=== PATIENT | male | born 1960 | race Caucasian/White ===

== ENCOUNTER 2018-01-20 18:54 | Inpatient (IN) ==
[2018-01-20] MEDS ORDERED: HEPARIN 25000 UNIT/500 ML D5W IV ONE (20:14)
[2018-01-20] MEDS ORDERED: HEPARIN SOD 5,000 UNIT/0.5 ML VIAL ONE (20:14)
[2018-01-20 20:22] LABS: Basophils # (auto) 0.05 K/uL (0-0.2); Basophils % (auto) 0.5 %; Eosinophils # (auto) 0.43 K/uL (0-0.5); Eosinophils % (auto) 3.9 %; Hematocrit (blood only) 50.1 % (42-52); Hemoglobin 18.3 g/dL (14.0-18.0); Immature Granulocytes # (auto) 0.04 K/uL (0.00-0.02); Immature Granulocytes % (auto) 0.4 %; Mean Corpuscular Hgb Conc 36.5 g/dL (32-36); Mean Corpuscular Volume 96.3 fL (80-100); Monocytes # (auto) 0.89 K/uL (0.11-0.59); Neutrophils # (auto) 5.69 K/uL (1.4-6.5); Neutrophils % (auto) 51.2 %; Platelet Count 188 K/uL (130-400); RDW Coefficient of Variation 12.2 % (11.5-14.5); RDW Standard Deviation 42.8 fL (36.4-46.3)
[2018-01-20 20:31] LABS: Albumin Level 4.3 gm/dl (3.4-5.0); BUN Creatinine Ratio 9.5 (10-20); Calcium 9.1 mg/dl (8.5-10.1); Creatinine Clr Calc Pharmacy 91.9 ml/min; Est GFR (African American) 101.1; Est GFR (Non-African American) 87.3; Potassium 3.5 mmol/L (3.5-5.1)
[2018-01-20 20:34] LABS: Albumin Globulin Ratio 0.8 (0.9-2); Bilirubin,Total 1.1 mg/dl (0.1-1); Globulin 5.3 gm/dl (2.5-4.0); Total Protein 9.6 gm/dl (6.4-8.2)
--- NOTE | 2018-01-20 20:43 | Emergency Department Note ---
Entered by Lelia Oivedo acting as a scribe for John Fernando DO History of Present Illness General Chief complaint: Abnormal Labs/Diagnostic Testing Stated complaint: OCCLUSION OF THE RT FEMORAL ARTERY Time Seen by Provider: 01/20/18 19:01 Source: patient History of Present Illness Onset (ago): week(s) 2 Location: right (calf) Radiation: extremity (Right leg) Pain Consistency: + other (Persistent) Maximum Pain Intensity: 8 Quality: + other (right calf pain) Exacerbated By: + movement Associated symptoms: no denies other symptoms The patient is a 57 year old male who presents to the Emergency Room with complaints of persistent right calf pain starting 2 weeks ago. The patient reports that the inside of his right calf began to hurt. He states that earlier today he was at his PCP who suggested he come to the ED. He reports that his right calf swelled up a few days ago. He notes that when he moves and puts pressure on his right leg his pain worsens. The patient states that upon movement the pain radiates down his right leg. He denies any other pertinent symptoms. The patient reports that he does smoke. Home Medications Home Medications Medication Instructions Recorded Confirmed Type No Known Home Medications 01/20/18 01/20/18 History Allergies Allergy/AdvReac Type Severity Reaction Status Date / Time Penicillins Allergy Severe Unknown Unverified 01/20/18 19:32 N Allergy Unknown Unknown Uncoded 01/20/18 19:32 PCN Allergy Unknown Unknown Uncoded 01/20/18 19:32 Past Med/Surg History Medical History Coagulation problem Social History Feels Safe at Home: Yes Smoking Status: Current every day smoker Preferred Language: Lithuanian Review of Systems See HPI for pertinent positives & negatives. and A total of 10 systems reviewed and were otherwise negative Physical Exam Vital Signs Vital Signs - 24 hr 01/20/18 18:56 01/20/18 20:25 Temperature 36.8 C Temperature Source Oral Sepsis Recent Fever Within 48 Hours No Sepsis Action Taken by Nursing No Action Required Pulse Rate 79 Pulse Rate [Bilateral Finger] 77 Pulse Rhythm Regular Pulse Rhythm [Bilateral Finger] Regular Pulse Strength Normal Pulse Strength [Bilateral Finger] Normal Respiratory Rate 18 16 Respiratory Effort / Characteristics Non-Labored Spontaneous Non-Labored Respiratory Depth Normal Normal Respiratory Pattern Regular Blood Pressure 198/111 H Blood Pressure [Right Arm] 164/112 H Blood Pressure Mean 140 Blood Pressure Mean [Right Arm] 129 Blood Pressure Position Sitting Blood Pressure Position [Right Arm] Lying Pulse Oximetry 98 95 Oxygen Delivery Method Room Air Room Air CONSTITUTIONAL/VITAL SIGNS: Reviewed / noted above. GENERAL: Non-toxic in appearance. INTEGUMENTARY: Warm, dry, and Fidelis. HEAD: Normocephalic. EYES: without scleral icterus or trauma. ENT/OROPHARYNX: clear and moist. LYMPHADENOPATHY/NECK: Is supple without lymphadenopathy or meningismus. RESPIRATORY: Lungs clear and equal. CARDIOVASCULAR: Regular rate and rhythm. GI/ABDOMEN: Soft and nontender. No organomegaly or pulsatile mass. No rebound or guarding. Normal bowel sounds. EXTREMITIES: 3 second capillary refill symmetrical in bilateral lower extremities. BACK: No CVA tenderness. NEUROLOGICAL: Intact without focal deficits. PSYCHIATRIC: normal affect. MUSCULOSKELETAL: Normally developed with good muscle tone. Course 1925: Past medical records reviewed. The patient was evaluated in room C4, and a complete history and physical examination were performed. 1999: I reviewed the patient's case with Dr. Baer - Vascular Surgeon. He recommends to give the patient IV Heparin and keep the patient in the hospital. 2005: I reviewed the patient's case with Dr. Valdez - [facility] hospitalist. He will evaluate the patient for further management. Administered Medications Discontinued Medications Heparin Sodium (Porcine) (Heparin Sodium (Porcine)) Confirm Administered Dose 10 ,000 units .ROUTE .STK-MED ONE Stop: 01/20/18 20:15 Last Admin: 01/20/18 20:18 Dose: 6,000 units Heparin Sodium/Dextrose () 1 ea N/A NOW STA; Protocol Stop: 01/20/18 20:04 Last Admin: 01/20/18 20:19 Dose: 1 ea Heparin Sodium/Dextrose (Heparin Sodium/Dextrose) Confirm Administered Dose 25, 000 units IV .STK-MED ONE Stop: 01/20/18 20:15 Last Admin: 01/20/18 20:21 Dose: 1,400 units Medical Decision Making Differential Diagnosis Differential diagnosis: Etiologies such as DVT, vascular ischemia, radiculopathy, fracture, hematoma/ contusion, myositis, abscess, septic arthritis cellulitis, joint effusion, trauma, lymphedema, idiopathic, CHF, as well as others were entertained. Medical Records Attestation: I reviewed the patient's medical records. Home Medications Current Medication List: was personally reviewed by me Laboratory Data Attestation: I reviewed the patient's lab results. Result diagrams: 01/20/18 19:15 01/20/18 19:15 Lab Results 01/20/18 01/20/18 Range/Units 19:15 19:15 WBC 11.10 H (4.8-10.8) K/uL RBC 5.20 (4.7-6.1) M/uL Hgb 18.3 H (14.0-18.0) g/dL Hct 50.1 (42-52) % MCV 96.3 (80-100) fL MCH 35.2 H (25-34) pg MCHC 36.5 H (32-36) g/dL RDW Std Deviation 42.8 (36.4-46.3) fL RDW Coeff of Caesar 12.2 (11.5-14.5) % Plt Count 188 (130-400) K/uL MPV 10.0 (7.4-10.4) fL Immature Gran % (Auto) 0.4 % Neut % (Auto) 51.2 % Lymph % (Auto) 36.0 % [place]upe % (Auto) 8.0 % Eos % (Auto) 3.9 % Baso % (Auto) 0.5 % Immature Gran # (Auto) 0.04 H (0.00-0.02) K/uL Neut # (Auto) 5.69 (1.4-6.5) K/uL Lymph # (Auto) 4.00 H (1.2-3.4) K/uL [place] # (Auto) 0.89 H (0.11-0.59) K/uL Eos # (Auto) 0.43 (0-0.5) K/uL Baso # (Auto) 0.05 (0-0.2) K/uL Sodium 135 L (136-145) mmol/L Potassium 3.5 (3.5-5.1) mmol/L Chloride 103 (98-107) mmol/L Carbon Dioxide 29 (21-32) mmol/L Anion Gap 3.0 (3-11) BUN 9 (7-18) mg/dl Creatinine 0.95 (0.6-1.4) mg/dl Est Cr Clr Drug Dosing 91.9 ml/min Est GFR ( Amer) 101.1 Est GFR (Non-Af Amer) 87.3 BUN/Creatinine Ratio 9.5 L (10-20) Glucose 84 (70-99) mg/dl Calcium 9.1 (8.5-10.1) mg/dl Total Bilirubin 1.1 H (0.1-1) mg/dl AST 59 H (15-37) U/L ALT 86 H (12-78) U/L Alkaline Phosphatase 122 H (45-117) U/L Total Protein 9.6 H (6.4-8.2) gm/dl Albumin 4.3 (3.4-5.0) gm/dl Globulin 5.3 H (2.5-4.0) gm/dl Albumin/Globulin Ratio 0.8 L (0.9-2) Imaging Data Radiologist's Impression: Radiology results as stated below per my review and the radiologist's interpretation: ULTRASOUND RIGHT LOWER EXTREMITY VENOUS CLINICAL HISTORY: Right calf pain. COMPARISON STUDY: No priors. TECHNIQUE: Real-time, grayscale, and color Doppler sonography of the deep veins of the right lower extremity was performed from the inguinal crease to the calf. Compression and augmentation were utilized. FINDINGS: There is no sonographic evidence of deep venous thrombosis identified in the right lower extremity. The common femoral, superficial femoral, and popliteal veins are patent and normally compressible. The greater saphenous vein and the profunda femoris vein at the junction with the common femoral vein are clear. The visualized calf veins are patent. There is occlusion of the right superficial femoral artery IMPRESSION: 1. There is no sonographic evidence of deep venous thrombosis identified in the right lower extremity. 2. There is occlusion of the right femoral artery. Electronically signed by: Lino Yan M.D. 01/20/2018 5:49 PM ECG Data Attestation: I personally reviewed and interpreted this ECG as follows: Indication: weakness Rate (beats per minute): 72 Rhythm: normal sinus Findings: no ST elevation and no ectopy Comparison ECG Date: no prior available Blood Pressure Blood Pressure Findings: Elevated blood pressure Blood Pressure Disposition: further management by hospitalist JACOB Roman This is a 57-year-old male who presents to the ED with a chief complaint of an abnormal outpatient ultrasound. The patient had been having some right leg pain over the past couple of weeks. The patient states that he has some claudication symptoms. He states that if he walks up the steps at home he begins to develop right calf pain. He also states that he could not walk very far to since without discomfort. An outpatient ultrasound revealed findings suggesting a right superficial femoral artery occlusion. He was sent to the ED for evaluation. EKG shows a normal sinus rhythm. CBC and chemistry panel was unremarkable. The patient's exam reveals some delayed capillary refill of about 3 seconds in both the lower extremities. After speaking with Dr. Baer, the patient will be admitted by the hospitalist service and placed on IV heparin for further inpatient evaluation. Impression & Plan Superficial femoral artery occlusion Discharge Plan Visit Data Chief Complaint: Abnormal Labs/Diagnostic Testing Stated Complaint: OCCLUSION OF THE RT FEMORAL ARTERY ED Provider: John Fernando Discharge Problem: Superficial femoral artery occlusion Patient Disposition: Being Evaluated by Hospitalist Forms Stand Alone [facility]: [facility] Prescriptions Prescriptions: No Action No Known Home Medications RF: 0 Referrals Referrals: Elton Calderon [Primary Care Provider] - The scribe's documentation has been prepared under my direction and personally reviewed by me in its entirety. I confirm that the note above accurately reflects all work, treatment, procedures, and medical decision making performed by me.
--- NOTE | 2018-01-20 21:04 | History & Physical Report ---
Date of Service January 20, 2018 Assessment & Plan (1) Occlusion of right femoral artery: -Admit to [facility] -Patient presenting by referral of outpatient physician for evaluation of right leg pain after outpatient ultrasound showed right femoral artery occlusion -History consistent with intermittent claudication; no pain at rest -Patient has been a lifelong smoker, smokes 1.5 packs of cigarettes per day -IV heparin started in the ED, will be continued -Frequent vascular checks by nursing -Vascular surgery consult, Dr. Baer notified by ED (2) Hypertension, uncontrolled: -BP elevated as high as 198/111 in ED -Patient reports a long-standing history of hypertension however has been off medications for several years -Was started on losartan today by outpatient physician, will continue and monitor response making adjustments as needed -PRN hydralazine (3) Alcohol abuse: -Patient reports drinking 4-6 beers per day -Start alcohol withdrawal protocol with gabapentin -Multivitamin, thiamine, folic acid started -Monitor closely for signs of withdrawal (4) Tobacco use: -Smokes 1.5 packs of cigarettes per day -Nicotine patch ordered -Patient counseled regarding tobacco cessation (5) Marijuana use: -Patient reports smoking 1 joint per day (6) Opiate use: -Occasional use of Vicodin and oxycodone, "when I can get my hands on it" per patient (7) DVT prophylaxis: -On IV heparin History of Present Illness Chief Complaint: Right leg pain Primary Care Provider: Elton Calderon 57-year-old male who presents to the ED by referral of outpatient physician for evaluation of right leg pain. Patient reports over the past 2 weeks he has been having increasing right calf pain with walking. Pain has been progressively getting worse to the point where he develops pain with about 5 or 6 steps. Recently, he also has developed pain in his right groin area. Patient reports he feels like both of his feet are always cold. Patient reports he otherwise been feeling well recently. No other recent illnesses, fevers, chills. He denies chest pain shortness of breath. No lightheadedness, dizziness, diaphoresis, syncopal events. He denies abdominal pain, nausea, vomiting, diarrhea. No urinary symptoms. Patient was evaluated at [facility] today and had a venous Doppler ordered which was negative for DVT however showed right femoral artery occlusion. Patient was referred to the ED for further evaluation. In the ED, patient was found to be hypertensive with BP 198/111. He was started on IV heparin. Allergies Allergy/AdvReac Type Severity Reaction Status Date / Time Penicillins Allergy Severe Unknown Unverified 01/20/18 19:32 N Allergy Unknown Unknown Uncoded 01/20/18 19:32 PCN Allergy Unknown Unknown Uncoded 01/20/18 19:32 Home Medications Home Medications Medication Instructions Recorded Confirmed Type No Known Home Medications 01/20/18 01/20/18 History Past Med/Surg History Medical History Coagulation problem Family History Mother Healthy adult 78 years old, alive and well Social History Current Living Situation: Family Current Living Situation Comment: With 2 grandsons Other Information That Helps Us Care for You: No Feels Safe at Home: Yes Safety Concerns: Feels Safe At This Time Smoking Status: Current every day smoker Tobacco Type: cigarettes Cigarettes per Day: Half and a pack per day Do You Dip or Chew Tobacco: No Second Hand Exposure: No Tobacco Cessation Education Requested by Patient: No Hx Alcohol Use: Yes Alcohol type: beer Alcohol Intake Frequency: 3 or more drinks per day Hx Substance Use: Yes substance use type: marijuana Last Used Substance: Days ( ago) Last Used Substance Other:: A joint a day; yesterday evening Beliefs That Will Affect Care: None Preferred Language: Guamanian Au Pair Required: No Review of Systems ROS per HPI, all other systems reviewed and negative Physical Exam 2 Vital Signs (Past 24 Hours): Last Vital Signs Temp 36.8 C 01/20/18 18:56 Pulse 77 01/20/18 20:25 Resp 16 01/20/18 20:25 BP 164/112 H 01/20/18 20:25 Pulse Ox 95 01/20/18 20:25 Constitutional: WD/WN, vitals as above Eyes: PERRL, conjunctivae normal, anicteric sclerae ENMT: external ear and nose normal, oropharynx normal Respiratory: normal respiratory effort, lungs clear to auscultation Cardiovascular: Rate/Rhythm: regular rate and regular rhythm Vessels: + abnormal peripheral pulses (Absent right pedal pulse, very diminished right posterior tibial pulse; diminished left pedal pulse, +2 left posterior tibial pulse) Extremities: no edema Both feet cool to touch Gastrointestinal (Abdomen): normal bowel sounds, soft, nontender, no hepatosplenomegaly Musculoskeletal: no cyanosis or clubbing, extremities motor strength 5/5 Skin: no rashes, warm and dry Neurologic: PERRL, EOMI, accommodation nl, no face palsy, no dysarthria Psychiatric: A+Ox3, euthymic affect Results & Data Laboratory Results Laboratory Last Values WBC 11.10 K/uL (4.8-10.8) H 01/20/18 19:15 RBC 5.20 M/uL (4.7-6.1) 01/20/18 19:15 Hgb 18.3 g/dL (14.0-18.0) H 01/20/18 19:15 Hct 50.1 % (42-52) 01/20/18 19:15 MCV 96.3 fL (80-100) 01/20/18 19:15 MCH 35.2 pg (25-34) H 01/20/18 19:15 MCHC 36.5 g/dL (32-36) H 01/20/18 19:15 RDW Std Deviation 42.8 fL (36.4-46.3) 01/20/18 19:15 RDW Coeff of Caesar 12.2 % (11.5-14.5) 01/20/18 19:15 Plt Count 188 K/uL (130-400) 01/20/18 19:15 MPV 10.0 fL (7.4-10.4) 01/20/18 19:15 Immature Gran % (Auto) 0.4 % 01/20/18 19:15 Neut % (Auto) 51.2 % 01/20/18 19:15 Lymph % (Auto) 36.0 % 01/20/18 19:15 Moca % (Auto) 8.0 % 01/20/18 19:15 Eos % (Auto) 3.9 % 01/20/18 19:15 Baso % (Auto) 0.5 % 01/20/18 19:15 Immature Gran # (Auto) 0.04 K/uL (0.00-0.02) H 01/20/18 19:15 Neut # (Auto) 5.69 K/uL (1.4-6.5) 01/20/18 19:15 Lymph # (Auto) 4.00 K/uL (1.2-3.4) H 01/20/18 19:15 Moca # (Auto) 0.89 K/uL (0.11-0.59) H 01/20/18 19:15 Eos # (Auto) 0.43 K/uL (0-0.5) 01/20/18 19:15 Baso # (Auto) 0.05 K/uL (0-0.2) 01/20/18 19:15 Sodium 135 mmol/L (136-145) L 01/20/18 19:15 Potassium 3.5 mmol/L (3.5-5.1) 01/20/18 19:15 Chloride 103 mmol/L (98-107) 01/20/18 19:15 Carbon Dioxide 29 mmol/L (21-32) 01/20/18 19:15 Anion Gap 3.0 (3-11) 01/20/18 19:15 BUN 9 mg/dl (7-18) 01/20/18 19:15 Creatinine 0.95 mg/dl (0.6-1.4) 01/20/18 19:15 Est Cr Clr Drug Dosing 91.9 ml/min 01/20/18 19:15 Est GFR ( Amer) 101.1 01/20/18 19:15 Est GFR (Non-Af Amer) 87.3 01/20/18 19:15 BUN/Creatinine Ratio 9.5 (10-20) L 01/20/18 19:15 Glucose 84 mg/dl (70-99) 01/20/18 19:15 Calcium 9.1 mg/dl (8.5-10.1) 01/20/18 19:15 Total Bilirubin 1.1 mg/dl (0.1-1) H 01/20/18 19:15 AST 59 U/L (15-37) H 01/20/18 19:15 ALT 86 U/L (12-78) H 01/20/18 19:15 Alkaline Phosphatase 122 U/L (45-117) H 01/20/18 19:15 Total Protein 9.6 gm/dl (6.4-8.2) H 01/20/18 19:15 Albumin 4.3 gm/dl (3.4-5.0) 01/20/18 19:15 Globulin 5.3 gm/dl (2.5-4.0) H 01/20/18 19:15 Albumin/Globulin Ratio 0.8 (0.9-2) L 01/20/18 19:15 Diagnostic Findings RLE VENOUS DOPPLER IMPRESSION: 1. There is no sonographic evidence of deep venous thrombosis identified in the right lower extremity. 2. There is occlusion of the right femoral artery. Code Status & VTE Plan VTE Prophylaxis Plan VTE Prophylaxis will be ordered: Yes Supervising Physician Co-Signing Physician Notes Agree with above H and P. Briefly 57M who didnot visited doctor for many years smokes, 1-2packs/day, drinks 4-6 beers/day, smokes marijuana daily presented to [facility] with Right lower extremity pain while ambulating which is going on for about 2 weeks. He says walking few steps brings on the pain in his right calf and resting for sometime pain goes away. Ultrasound done in [facility] showed occluded to right femoral artery. Denies any chest pain or sob. No nausea. Has smokers cough. Afebrile..Blood pressure is high and was prescribed losartan at [facility] today. 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 HTN started on losartn hydralazine prn Alcoholism alcholol withdrawal [protocol thiamine Smoking tobacco and marijuana counselling
[2018-01-20] MEDS ORDERED: LORazepam 1 MG TAB PO PRN (22:03)
[2018-01-20] MEDS ORDERED: GABAPENTIN 1200MG ALCOHOL WITHDRAWAL LOAD PO STA (22:03)
[2018-01-20] MEDS ORDERED: ONDANSETRON INJ 2 MG/ML 2 ML VIAL IV PRN (22:03)
[2018-01-20] MEDS ORDERED: GABAPENTIN 600 MG TAB PO SCH (22:30)
[2018-01-20] MEDS ORDERED: HEPARIN STANDARD DEXTROSE 25,000 UNITS/500 ML IV SCH (22:54)
[2018-01-20] MEDS: LOSARTAN POTASSIUM 25 MG TAB PO SCH (23:21)
[2018-01-20] MEDS: FOLIC ACID 1 MG TAB PO SCH (23:22)
[2018-01-20] MEDS: MULTIVITAMIN TAB PO SCH (23:23)
[2018-01-20] MEDS: NICOTINE 14 MG/24 HR PATCH TD SCH (23:24)
[2018-01-20] MEDS: THIAMINE HCL 100 MG TAB PO SCH (23:25)
[2018-01-21 02:56] LABS: Partial Thromboplastin Ratio 2.7; Partial Thromboplastin Time 69.2 Seconds (21.0-31.0)
[2018-01-21] MEDS: GABAPENTIN 600 MG TAB PO SCH ×4 (03:31→17:20)
[2018-01-21 06:57] LABS: Hemoglobin 16.9 g/dL (14.0-18.0); Mean Corpuscular Hgb Conc 36.7 g/dL (32-36); Mean Corpuscular Volume 95.6 fL (80-100); Mean Platelet Volume 9.2 fL (7.4-10.4); Platelet Count 163 K/uL (130-400); RDW Coefficient of Variation 12.1 % (11.5-14.5); RDW Standard Deviation 41.9 fL (36.4-46.3); Red Blood Count 4.81 M/uL (4.7-6.1)
[2018-01-21 07:36] LABS: Albumin Level 3.4 gm/dl (3.4-5.0); BUN Creatinine Ratio 9.7 (10-20); Bilirubin Direct 0.4 mg/dl (0-0.2); Calcium 8.4 mg/dl (8.5-10.1); Creatinine Clr Calc Pharmacy 105.5 ml/min; Est GFR (African American) 112.2; Est GFR (Non-African American) 96.8; Potassium 3.5 mmol/L (3.5-5.1)
[2018-01-21 07:43] LABS: Bilirubin,Total 1.1 mg/dl (0.1-1); Total Protein 7.8 gm/dl (6.4-8.2)
--- NOTE | 2018-01-21 08:07 | Ultrasound Report ---
US liver CLINICAL HISTORY: ELEVATED LFT COMPARISON STUDY: No previous studies for comparison. FINDINGS: Fatty infiltration of liver. Normal gallbladder. Common bile duct 6 mm. Intrahepatic ducts are normal. Kidneys negative for hydronephrosis. Pancreas is unremarkable. IMPRESSION: Fatty infiltration of liver. Otherwise negative study.. The above report was generated using voice recognition software. It may contain grammatical, syntax or spelling errors. Electronically signed by: Zoran Wyatt M.D. 01/21/2018 8:05 AM
[2018-01-21] MEDS: THIAMINE HCL 100 MG TAB PO SCH (08:58)
[2018-01-21] MEDS: FOLIC ACID 1 MG TAB PO SCH (08:58)
[2018-01-21] MEDS: LOSARTAN POTASSIUM 25 MG TAB PO SCH (08:59)
[2018-01-21] MEDS: MULTIVITAMIN TAB PO SCH (08:59)
--- NOTE | 2018-01-21 08:59 | Consultation ---
Date of Consultation January 21, 2018 Assessment & Plan (1) Claudication of right lower extremity: Due to the severity of the claudication right lower extremity is extremely short distances we recommend arteriography and possible intervention. He did have a distal superficial femoral artery occlusion on ultrasound done at a different facility. I have discussed the risks options and benefits of the procedure with the patient. The patient understands the risks options and benefits and agrees to the procedure. This will be done today in the angiogram suite. Thank you very much for letting us participate in the care of this patient. History of Present Illness Reason for Consultation: Severe claudication of the right lower extremity. Attending Physician: Marcos Hightower MD History of Present Illness This is a 57-year-old white male who has a heavy smoking history. He was found to have pain in his right calf which occurred over the last 2 weeks. It comes on at this point walking short distances of 2-3 steps. It is easily relieved with stopping or resting. He denies any pain at rest. He denies any ulceration of lower extremities. He has not any problems with this in the past. He has no history of cardiac arrhythmias. He does have a history of hypertension as well as marijuana opiate and alcohol use Allergies Allergy/AdvReac Type Severity Reaction Status Date / Time Penicillins Allergy Severe Unknown Unverified 01/20/18 19:32 N Allergy Unknown Unknown Uncoded 01/20/18 19:32 PCN Allergy Unknown Unknown Uncoded 01/20/18 19:32 Home Medications Home Medications Medication Instructions Recorded Confirmed Type No Known Home Medications 01/20/18 01/20/18 History Patient History Medical History Leg fracture, right (Resolved) s/p repair HTN (hypertension) (Chronic) Coagulation problem (Inactive) Surgical History S/P wrist surgery (Chronic) right Family History Mother Healthy adult 78 years old, alive and well Social History Current Living Situation: Family Current Living Situation Comment: With 2 grandsons Other Information That Helps Us Care for You: No Feels Safe at Home: Yes Safety Concerns: Feels Safe At This Time Smoking Status: Current every day smoker Tobacco Type: cigarettes Cigarettes per Day: Half and a pack per day Do You Dip or Chew Tobacco: No Second Hand Exposure: No Tobacco Cessation Education Requested by Patient: No Hx Alcohol Use: Yes Alcohol type: beer Alcohol Intake Frequency: 3 or more drinks per day Hx Substance Use: Yes substance use type: marijuana Last Used Substance: Days ( ago) Last Used Substance Other:: A joint a day; yesterday evening Beliefs That Will Affect Care: None Preferred Language: Citizen [place] 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 His only positive complaints are as his HPI. Physical Exam 2 Vital Signs (Past 24 Hours): Last Vital Signs Temp 36.7 C 01/21/18 08:35 Pulse 82 01/21/18 08:35 Resp 18 01/21/18 08:35 BP 168/90 H 01/21/18 08:35 Pulse Ox 96 01/21/18 08:35 on exam the patient is awake oriented x3 he is in no apparent distress. Head and neck are within normal limits trachea is midline there are no carotid bruits lungs are clear to auscultation and percussion. Heart had a regular rate and rhythm without murmurs gallops or rubs. Abdominal exam is benign no abnormal dilatation aorta is appreciated. It is soft. Vascular exam reveals radials carotid superficial temporal arteries +2 bilaterally. Femorals are +2 bilaterally. There are palpable pulses in the left foot at the posterior tibial and a weak pulse at the dorsalis pedis. The right lower extremity has no pulses below the groin. There is normal hair growth in both lower extremities. There is no evidence of ulcerations or skin breakdown of either lower extremity. There is decreased capillary refill in the right foot. Neurologic exam is intact and motor and sensory function. His cranial nerves are also intact.
[2018-01-21] MEDS ORDERED: SODIUM CHLORIDE 0.9% 1000ML 1,000 ML IV SCH (09:00)
[2018-01-21] MEDS: NICOTINE 14 MG/24 HR PATCH TD SCH (09:13)
--- NOTE | 2018-01-21 09:35 | Hospitalist Progress Note ---
Date of Service January 21, 2018 Assessment & Plan (1) Occlusion of right femoral artery: Occlusion of right femoral artery (Claudication of right lower extremity) -Admit to [facility] -Patient presenting by referral of outpatient physician for evaluation of right leg pain after outpatient ultrasound showed right femoral artery occlusion -patient will be assessed in the angiogram suite today by vascular service in regards to further diagnostic and possible vascular procedure intervention -patient will continue heparin drip while awaiting vascular service (2) Hypertension, uncontrolled: -BP elevated as high as 198/111 in ED on 01/20/18 presentation -01/21/18 blood pressure preop is better controlled today with systolic in the 160s to 170s -will continue oral losartan as started recently -PRN hydralazine (3) Alcohol abuse: -Patient reports drinking 4-6 beers per day -is on gabapentin protocol in case of alcohol withdrawal -Multivitamin, thiamine, folic acid -no evidence for delirium tremens at this time (4) Tobacco use: -Smokes 1.5 packs of cigarettes per day -Nicotine patch inpatient -Patient counseled regarding tobacco cessation (5) Marijuana use: -Patient reports smoking 1 joint per day (6) Opiate use: -Occasional use of Vicodin and oxycodone -minimize narcotics in hospital unless severely needed for pain control (7) DVT prophylaxis: -On IV heparin Subjective Patient reports right calf discomfort. But not in acute distress. Denies chest pain pain or shortness of breath. Denies abdominal pain. denies vomiting. denies lightheadedness. Physical Exam 2 Vital Signs (Past 24 Hours): Last Vital Signs Temp 36.7 C 01/21/18 08:35 Pulse 82 01/21/18 08:35 Resp 18 01/21/18 08:35 BP 168/90 H 01/21/18 08:35 Pulse Ox 96 01/21/18 08:35 Constitutional: WD/WN, vitals as above Eyes: PERRL, conjunctivae normal, anicteric sclerae EOM intact bilaterally ENMT: external ear and nose normal, oropharynx normal Neck: trachea midline, no thyromegaly Respiratory: normal respiratory effort, lungs clear to auscultation Cardiovascular: RRR, no murmur, no edema Gastrointestinal (Abdomen): normal bowel sounds, soft, nontender, no hepatosplenomegaly Musculoskeletal: Head/Neck/Chest: normocephalic and head atraumatic Vessels : pedal pulse of right foot diminished, lower Extremities with no edema Neurologic: PERRL, EOMI, accommodation nl, no face palsy, no dysarthria CN' s II-XI intact bilaterally Psychiatric: A+Ox3, euthymic affect
[2018-01-21] MEDS: CLINDAMYCIN 600 MG/54 ML BAG IV SCH ×2 (11:01→11:54)
[2018-01-21] MEDS ORDERED: HEPARIN SOD (PORCINE) 1000 UNIT/ML 10 ML VIAL ONE (11:47)
[2018-01-21] MEDS ORDERED: MIDAZOLAM HCL 1 MG/ML 2ML VIAL ONE (11:47)
[2018-01-21] MEDS ORDERED: fentaNYL citrate 100 MCG/2 ML VIAL ONE ×2 (11:47→13:12)
--- NOTE | 2018-01-21 12:07 | Pre Anesthesia Assessment ---
Date of Service January 21, 2018 Pre Sedation Assessment Vital Signs Temp Pulse Pulse Pulse Pulse Pulse Resp 01/21/18 12:00 36.9 C 83 20 01/21/18 08:35 36.7 C 82 18 01/21/18 03:08 36.7 C 69 16 01/21/18 00:40 88 01/20/18 22:52 36.9 C 82 20 01/20/18 21:49 37.0 C 76 16 01/20/18 21:36 71 16 01/20/18 20:25 77 16 01/20/18 18:56 36.8 C 79 18 BP BP BP Pulse Ox 01/21/18 12:00 162/92 H 96 01/21/18 08:35 168/90 H 96 01/21/18 03:08 158/82 H 96 01/21/18 00:40 164/72 H 01/20/18 22:52 187/92 H 98 01/20/18 21:49 155/98 H 96 01/20/18 21:36 174/102 H 99 01/20/18 20:25 164/112 H 95 01/20/18 18:56 198/111 H 98 Cardiovascular + regular rate and + regular rhythm Respiratory normal respiratory effort, lungs clear to auscultation Pre-Sedation Airway Assessment Smoking Status: Current every day smoker Hx Sleep Apnea: No Short, Thick Neck: No Thyromental Distance: > or= 3.5 Finger Breadths Oral Cavity: + WNL Mallampati Class: I ASA: ASA2 NPO Status Date of Last Intake of Fluids: 01/20/18 Time of Last Intake of Fluids: 23:00 Date of Last Intake of Solid Food: 01/20/18 Time of Last Intake of Solid Foods: 23:00 Notes The planned sedation has been discussed with the patient. Informed Consent was obtained. I have identified the patient, determined the appropriateness of sedation and have assessed the patient immediately prior to the procedure. All medicine(s) and interventions are by my order.
[2018-01-21] MEDS ORDERED: VISIPAQUE IV PRN (13:39)
[2018-01-21] MEDS ORDERED: LIDOCAINE HCL 1% 20 ML VIAL INJ ONE (13:39)
--- NOTE | 2018-01-21 13:45 | Post Anesthesia Assessment ---
Date of Service January 21, 2018 Post Sedation Assessment Vital Signs Temp Pulse Pulse Pulse Pulse Pulse Resp 01/21/18 13:38 78 18 01/21/18 13:33 80 15 01/21/18 13:30 79 15 01/21/18 13:25 78 15 01/21/18 13:20 74 14 01/21/18 13:15 78 12 01/21/18 13:10 80 19 01/21/18 13:05 79 15 01/21/18 13:00 75 13 01/21/18 12:55 76 12 01/21/18 12:50 82 14 01/21/18 12:45 78 12 01/21/18 12:40 79 14 01/21/18 12:37 82 12 01/21/18 12:32 79 13 01/21/18 12:31 79 16 01/21/18 12:26 79 23 01/21/18 12:21 76 15 01/21/18 12:16 75 17 01/21/18 12:00 36.9 C 83 20 01/21/18 08:35 36.7 C 82 18 01/21/18 03:08 36.7 C 69 16 01/21/18 00:40 88 01/20/18 22:52 36.9 C 82 20 01/20/18 21:49 37.0 C 76 16 01/20/18 21:36 71 16 01/20/18 20:25 77 16 01/20/18 18:56 36.8 C 79 18 BP BP BP Pulse Ox 01/21/18 13:38 183/101 H 96 01/21/18 13:33 178/99 H 97 01/21/18 13:30 190/106 H 95 01/21/18 13:25 183/104 H 97 01/21/18 13:20 176/93 H 99 01/21/18 13:15 167/95 H 98 01/21/18 13:10 166/105 H 97 01/21/18 13:05 160/83 H 97 01/21/18 13:00 130/79 98 01/21/18 12:55 135/70 99 01/21/18 12:50 159/93 H 100 01/21/18 12:45 169/95 H 100 01/21/18 12:40 172/103 H 100 01/21/18 12:37 178/95 H 100 01/21/18 12:32 170/99 H 100 01/21/18 12:31 160/87 H 100 01/21/18 12:26 172/97 H 100 01/21/18 12:21 175/97 H 100 01/21/18 12:16 179/99 H 100 01/21/18 12:00 162/92 H 96 01/21/18 08:35 168/90 H 96 01/21/18 03:08 158/82 H 96 01/21/18 00:40 164/72 H 01/20/18 22:52 187/92 H 98 01/20/18 21:49 155/98 H 96 01/20/18 21:36 174/102 H 99 01/20/18 20:25 164/112 H 95 01/20/18 18:56 198/111 H 98 Recovery Score Activity: Moves 4 extremities Respiration: Deep Breath/Cough Circulation: +/-20% PreAnes Value Consciousness: Fully Awake Oxygen Saturation: > 92% On Room Air Post Anesthesia Score: 10 Post Sedation Plan On clinical assessment, the patient appears to have tolerated the sedation without complications. Patient is recovering as anticipated. Patient will continue to be monitored by nursing and may be discharged when sedation discharge criteria are met per below protocol. Upon Completions of procedure and additional 15 minutes continue every 5 minute vital signs and the P.A.R. score; then discharge to a Phase I or Fast Track to Phase II per the following guidelines: * Discharge Patient to appropriate Phase II area if PAR is 8 or greater or return to pre- procedure baseline. The post - procedure orders will be as directed. * If PAR score is less than 8 or not return to pre-procedure baseline then patient will follow Phase I monitoring till PAR is reached for Phase II. The Phase I may be done in procedure room or may call to secure a Phase I area. * If naloxone or flumazenil are used for reversal, hold in Phase I for continued monitoring from when last reversal dose was given for a minimum of 60 minutes or longer pending the nurse and/or physician discretion of patient condition before discharge to Phase II. Please call the Sedation Physician to re-evaluate and complete post-note for discharge to Phase II area. Do NOT discharge from procedure sedation or Phase 1 until post- sedation evaluation note is complete by procedure /sedation MD Sedation Discharge Instructions to be given to the patient at discharge to home.
--- NOTE | 2018-01-21 13:46 | Post Operative Brief Note ---
Immediate Post Op Note v1 Date of Surgery January 21, 2018 Pre & Post Diagnosis Operation Date: 01/21/18 11:40 Pre-Op Diagnosis: FEMORAL ARTERY OCCLUSION WITH SEVERE CLAUDICATION Post-Op Diagnosis: FEMORAL ARTERY OCCLUSION WITH SEVERE CLAUDICATION Procedure Operation Date: 01/21/18 11:40 Actual Procedures p Right Lower Extremity Angiogram, Mechanical Arthrectomy of Right Superficial Femoral Artery, Percutaneous Transluminal Angioplasty and Stenting of the Right Superficial Femoral Artery, Mechanical Closure of Left Femoral Artery, Moderate Sedation from 1231- 1338.(Right) - Shon Baer MD s SC Select Cath Alep 3rd Order(Right) - Shon Baer MD s Fem Pop Stent Balloon Atherectomy(Right) - Shon Baer MD Surgeon Shon Baer MD Shield Operator None Estimated Blood Loss 20 Findings Consistent with Post-Op Diagnosis Anesthesia Type RN Sedation Complications none Disposition Accompanied Patient To Recovery: No Disposition: Recovery Room
[2018-01-21] MEDS ORDERED: SODIUM CHLORIDE 0.9% 500 ML IV SCH (14:01)
[2018-01-21] MEDS ORDERED: CLOPIDOGREL BISULFATE 300 MG TAB PO STA (14:01)
[2018-01-21] MEDS: HydrALAZINE HCL 20 MG/ML VIAL IV PRN ×2 (14:11→23:19)
[2018-01-21] MEDS: ACETAMINOPHEN 325 MG TAB PO PRN ×2 (14:12→22:11)
[2018-01-21] MEDS ORDERED: KETOROLAC TROMETHAMINE 15 MG/ML VIAL IV STA (17:14)
[2018-01-22] MEDS ORDERED: OXYCODONE/ACETAMINOPHEN 5mg/325mg TAB PO STA ×2 (00:47→00:48)
[2018-01-22] MEDS: GABAPENTIN 600 MG TAB PO SCH ×3 (01:26→21:07)
[2018-01-22 07:22] LABS: Basophils # (auto) 0.02 K/uL (0-0.2); Basophils % (auto) 0.2 %; Eosinophils # (auto) 0.15 K/uL (0-0.5); Eosinophils % (auto) 1.4 %; Hematocrit (blood only) 46.3 % (42-52); Hemoglobin 16.6 g/dL (14.0-18.0); Immature Granulocytes # (auto) 0.03 K/uL (0.00-0.02); Immature Granulocytes % (auto) 0.3 %; Lymphocytes # (auto) 2.14 K/uL (1.2-3.4); Lymphocytes % (auto) 20.5 %; Mean Corpuscular Hgb Conc 35.9 g/dL (32-36); Mean Corpuscular Volume 97.3 fL (80-100); Mean Platelet Volume 9.7 fL (7.4-10.4); Monocytes # (auto) 1.01 K/uL (0.11-0.59); Monocytes % (auto) 9.7 %; Neutrophils # (auto) 7.11 K/uL (1.4-6.5); Neutrophils % (auto) 67.9 %; Platelet Count 161 K/uL (130-400); RDW Coefficient of Variation 12.3 % (11.5-14.5); RDW Standard Deviation 43.9 fL (36.4-46.3); Red Blood Count 4.76 M/uL (4.7-6.1); White Blood Count 10.46 K/uL (4.8-10.8)
[2018-01-22] MEDS ORDERED: HYDROmorphone INJ 1 MG/ML SYRINGE IV STA (07:28)
[2018-01-22] MEDS ORDERED: HYDROmorphone INJ 1 MG/ML SYRINGE ONE (07:33)
[2018-01-22] MEDS: LOSARTAN POTASSIUM 25 MG TAB PO SCH (07:39)
[2018-01-22 07:52] LABS: Albumin Level 3.6 gm/dl (3.4-5.0); BUN Creatinine Ratio 11.5 (10-20); Est GFR (African American) 105.1; Est GFR (Non-African American) 90.7; Potassium 3.6 mmol/L (3.5-5.1)
[2018-01-22 07:55] LABS: Albumin Globulin Ratio 0.8 (0.9-2); Globulin 4.6 gm/dl (2.5-4.0); Total Protein 8.2 gm/dl (6.4-8.2)
[2018-01-22] MEDS ORDERED: HYDROmorphone INJ 0.5 MG/0.5 ML SYR IV PRN (08:07)
[2018-01-22] MEDS ORDERED: POTASSIUM CHLORIDE 20 MEQ TABCR PO STA (08:12)
[2018-01-22] MEDS: CLOPIDOGREL BISULFATE 75 MG TAB PO SCH (08:45)
[2018-01-22] MEDS: THIAMINE HCL 100 MG TAB PO SCH (08:45)
[2018-01-22] MEDS: FOLIC ACID 1 MG TAB PO SCH (08:45)
[2018-01-22] MEDS: MULTIVITAMIN TAB PO SCH (08:45)
[2018-01-22] MEDS: NICOTINE 14 MG/24 HR PATCH TD SCH (08:46)
[2018-01-22] MEDS: ACETAMINOPHEN 325 MG TAB PO PRN (08:50)
[2018-01-22] MEDS: HydrALAZINE HCL 20 MG/ML VIAL IV PRN (08:51)
[2018-01-22] MEDS ORDERED: hydroCHLOROthiazide 25 MG TAB PO SCH (09:00)
--- NOTE | 2018-01-22 09:25 | Surgery Progress Note ---
Date of Service January 22, 2018 Assessment & Plan (1) Claudication of right lower extremity: This patient is postop day 1 after balloon angioplasty and stenting of an occluded right superficial femoral artery. He is doing extremely well from a vascular standpoint other than slight discomfort in the thigh. He claims at this point that he cannot walk due to discomfort. I ordered physical therapy so hopefully we get him up and ambulating today and he could be discharged home tomorrow. He will need to be discharged on Plavix 75 mg daily. Subjective Patient is complaining of discomfort in the right thigh. He denies any foot pain foot numbness. He denies any weakness in his foot. Physical Exam 2 Vital Signs (Past 24 Hours): Last Vital Signs Temp 36.9 C 01/22/18 07:12 Pulse 85 01/22/18 07:12 Resp 18 01/22/18 07:12 BP 196/95 H 01/22/18 07:12 Pulse Ox 86 L 01/22/18 07:12 Physical Exam: On exam his puncture site is dry and clean. He has good capillary refill the right foot. There is excellent dorsalis pedis and posterior tibial Dopplers in the right foot.
[2018-01-22] MEDS: OXYCODONE HCL IR 5 MG TAB (IMMEDIATE RELEASE) PO PRN ×2 (09:42→19:56)
[2018-01-22] MEDS ORDERED: ENALAPRILAT 1.25 MG in DEXTROSE 5% 25 ML IV PRN (11:11)
[2018-01-22] MEDS ORDERED: cloNIDine HCL 0.1 MG/24 HR TRANSDERM SYS TD SCH (12:00)
[2018-01-22] MEDS: HYDROmorphone INJ 0.5 MG/0.5 ML SYR IV PRN ×2 (13:17→17:11)
[2018-01-22] MEDS: CHECK CLONIDINE PATCH PLACEMENT SCH ×2 (15:11→23:37)
[2018-01-22] MEDS ORDERED: hydroCHLOROthiazide 25 MG TAB PO STA (15:44)
[2018-01-22] MEDS ORDERED: LABETALOL HCL IV 5 MG/ML 20ML IV PRN (16:17)
--- NOTE | 2018-01-22 16:17 | Hospitalist Progress Note ---
Date of Service January 22, 2018 Assessment & Plan (1) Occlusion of right femoral artery: Occlusion of right femoral artery (Claudication of right lower extremity) -Patient presenting by referral of outpatient physician for evaluation of right leg pain after outpatient ultrasound showed right femoral artery occlusion -was placed on IV heparin and on 01/21/18, he had balloon angioplasty and stenting of an occluded right superficial femoral artery; off IV heparin -Plavix daily -PT/OT -pain control (2) Hypertension, uncontrolled: -BP elevated as high as 198/111 in ED on 01/20/18 presentation -While patient's blood pressure may be classified as hypertensive urgency, it is possible that patient's elevated blood pressure is chronically elevated -currently have given patient losartan 50 mg daily, HCTZ 25 mg daily, clonidine patch -have stopped IV hydralazine prn because of facial flushing; Enalprilat 1.25 q12 hours as needed if sbp> 180, labetalol 10 mg IV q8 hours as needed if sbp > 180 -pain control to minimize blood pressure elevations from discomfort (3) Alcohol abuse: -Patient reports drinking 4-6 beers per day -is on gabapentin protocol in case of alcohol withdrawal -Multivitamin, thiamine, folic acid -no evidence for delirium tremens at this time (4) Tobacco use: -Smokes 1.5 packs of cigarettes per day -Nicotine patch while inpatient -Patient counseled regarding tobacco cessation (5) Marijuana use: -Patient reports smoking 1 joint per day (6) Opiate use: -Hospitalist and patient have discussed his history of using Vicodin in the past without primary care doctor visits or primary care doctor prescriptions as patient in the past tried to self medicate leg pains in the past without doctors visits -Have checked [place] PDMP and no acute narcotic pain medications -At this time post-op the need for narcotic pain medication appears indicated -oxycodone and dilaudid prn for moderate and severe pain, acetaminophen prn for mild pain (7) DVT prophylaxis: -ambulation as tolerated, continue plavix Subjective Patient this morning reporting a great deal of pain of right leg especially with ambulation Hospitalist and patient have discussed his history of using Vicodin in the past without primary care doctor visits or primary care doctor prescriptions as patient in the past tried to self medicate leg pains in the past without doctors visits Have checked [place] PDMP and no acute narcotic pain medications At this time post-op the need for narcotic pain medication appears indicated Pain is better controlled by evening. But patient's blood pressure still very elevated. Denies headache or lightheadedness. Denies chest pain pain or shortness of breath. Denies abdominal pain. denies vomiting. Physical Exam 2 Vital Signs (Past 24 Hours): Last Vital Signs Temp 37 C 01/22/18 15: Pulse 89 01/22/18 15:22 Resp 18 01/22/18 15: BP 198/89 H 01/22/18 15:22 Pulse Ox 96 01/22/18 15:22 Constitutional: WD/WN, vitals as above Eyes: PERRL, conjunctivae normal, anicteric sclerae EOM intact bilaterally ENMT: external ear and nose normal, oropharynx normal Neck: trachea midline, no thyromegaly Respiratory: normal respiratory effort, lungs clear to auscultation Cardiovascular: RRR, no murmur, no edema Gastrointestinal (Abdomen): normal bowel sounds, soft, nontender, no hepatosplenomegaly Musculoskeletal: Head/Neck/Chest: normocephalic and head atraumatic Neurologic: PERRL, EOMI, accommodation nl, no face palsy, no dysarthria CN' s II-XI intact bilaterally Psychiatric: A+Ox3, euthymic affect
[2018-01-23] MEDS: CHECK CLONIDINE PATCH PLACEMENT SCH (07:29)
[2018-01-23] MEDS: HYDROmorphone INJ 0.5 MG/0.5 ML SYR IV PRN (07:29)
[2018-01-23] MEDS: CLOPIDOGREL BISULFATE 75 MG TAB PO SCH (07:30)
[2018-01-23] MEDS: MULTIVITAMIN TAB PO SCH (07:30)
[2018-01-23] MEDS: LOSARTAN POTASSIUM 25 MG TAB PO SCH (07:30)
[2018-01-23] MEDS: THIAMINE HCL 100 MG TAB PO SCH (07:30)
[2018-01-23] MEDS: FOLIC ACID 1 MG TAB PO SCH (07:31)
[2018-01-23] MEDS: NICOTINE 14 MG/24 HR PATCH TD SCH (08:54)
[2018-01-23] MEDS: GABAPENTIN 600 MG TAB PO SCH (08:54)
[2018-01-23] MEDS: OXYCODONE HCL IR 5 MG TAB (IMMEDIATE RELEASE) PO PRN (08:57)
[2018-01-23] MEDS ORDERED: hydroCHLOROthiazide 25 MG TAB PO SCH (09:00)
--- NOTE | 2018-01-23 09:10 | Surgery Progress Note ---
Date of Service January 23, 2018 Assessment & Plan (1) Claudication of right lower extremity: He is doing well at this time. He can be discharged whenever fit by medicine. He does need to go home on Plavix 75 mg daily. Subjective Patient is complaining of discomfort in the right thigh but it slightly better today. He denies any foot pain foot numbness. He denies any weakness in his foot. He is ambulating with a walker. Physical Exam 2 Vital Signs (Past 24 Hours): Last Vital Signs Temp 37.1 C 01/23/18 07:01 Pulse 103 H 01/23/18 08:00 Resp 18 01/23/18 07:01 BP 153/53 H 01/23/18 07:01 Pulse Ox 94 01/23/18 07:01 ENMT: Mallampati Class: I Respiratory: normal respiratory effort, lungs clear to auscultation Cardiovascular: Rate/Rhythm: regular rate and regular rhythm He is got good posterior tibial and dorsalis pedis Doppler pulses of the right foot.
[2018-01-23] MEDS ORDERED: POTASSIUM CHLORIDE 20 MEQ TABCR PO STA (09:15)
[2018-01-23] MEDS ORDERED: ACETAMINOPHEN 325 MG TAB PO PRN (10:27)
[2018-01-23] MEDS ORDERED: IBUPROFEN 200 MG TAB PO PRN (11:53)
--- NOTE | 2018-01-23 11:59 | Hospitalist Progress Note ---
Date of Service January 23, 2018 Assessment & Plan (1) Occlusion of right femoral artery: Occlusion of right femoral artery (Claudication of right lower extremity) -Patient presenting by referral of outpatient physician for evaluation of right leg pain after outpatient ultrasound showed right femoral artery occlusion -was placed on IV heparin and on 01/21/18, he had balloon angioplasty and stenting of an occluded right superficial femoral artery; off IV heparin -Plavix daily (2) Hypertension, uncontrolled: -BP elevated as high as 198/111 in ED on 01/20/18 presentation -While patient's blood pressure may be classified as hypertensive urgency, it is possible that patient's elevated blood pressure is chronically elevated -01/22/18: have stopped IV hydralazine prn because of facial flushing; Enalprilat 1.25 q12 hours as needed if sbp> 180, labetalol 10 mg IV q8 hours as needed if sbp > 180; pain control to minimize blood pressure elevations from discomfort -01/23/18; blood pressure appears better controlled and can be discharged on Losartan 50 mg daily and HCTZ 25 mg daily, expect that patient will have some hypertension that will need future monitoring and medication adjustments by primary care doctor (3) Alcohol abuse: -Patient reports drinking 4-6 beers per day -is on gabapentin protocol in case of alcohol withdrawal -Multivitamin, thiamine, folic acid -no evidence for delirium tremens at this time -recommend that patient drink alcohol in moderation, minimize alcohol use (4) Tobacco use: -Smokes 1.5 packs of cigarettes per day -Patient recommended to minimize smoking, has nicotine patch prescribed, minimize alcohol use or non-prescribed substances (5) Marijuana use: -Patient reports smoking 1 joint per day -Patient recommended to minimize smoking, has nicotine patch prescribed, minimize alcohol use or non-prescribed substances (6) Opiate use: -Hospitalist and patient have discussed his history of using Vicodin in the past without primary care doctor visits or primary care doctor prescriptions as patient in the past tried to self medicate leg pains in the past without doctors visits -Have checked [place] PDMP and no acute narcotic pain medications -01/23/18: pain appears better controlled today -Patient can take acetaminophen 325 mg every 4 hours as needed for mild leg pain, Patient can take ibuprofen every 6 hours as needed for moderate to severe leg pain (7) DVT prophylaxis: -ambulation as tolerated, continue plavix Discharge Instructions Patient had balloon angioplasty and stenting of an occluded right superficial femoral artery on 01/21/18. As per vascular surgeon Dr. Shon Baer, patient will need to take plavix (clopidogrel) Any concerns for leg issues patient can go to vascular surgery Dr. Shon Baer [address], [place] [address] Patient should take losartan 50 mg daily and hydrochlorothiazide 25 mg daily. Patient should take low salt (less than 2 grams diet) to help control blood pressure Patient should have blood pressure and basic metabolic panel and renal function labs rechecked with primary care doctor on 01/28/2018 10:00 AM Provider Elton Calderon MD [facility] Patient can take acetaminophen 325 mg every 4 hours as needed for mild leg pain Patient can take ibuprofen every 6 hours as needed for moderate to severe leg pain Patient recommended to minimize smoking, has nicotine patch prescribed, minimize alcohol use or non-prescribed substances Subjective Prior to blood pressure medications for 9 AM, patient's blood pressure stable 153/53 Denies headache or lightheadedness. Denies chest pain pain or shortness of breath. Denies abdominal pain. denies vomiting. Patient reports some discomfort when walking with physical therapy but no acute distress and able to walk well on exam Physical Exam 2 Vital Signs (Past 24 Hours): Last Vital Signs Temp 37.1 C 01/23/18 07:01 Pulse 103 H 01/23/18 08:00 Resp 18 01/23/18 07:01 BP 153/53 H 01/23/18 07:01 Pulse Ox 94 01/23/18 07:01 Constitutional: WD/WN, vitals as above Eyes: PERRL, conjunctivae normal, anicteric sclerae EOM intact bilaterally ENMT: external ear and nose normal, oropharynx normal Neck: trachea midline, no thyromegaly Respiratory: normal respiratory effort, lungs clear to auscultation Cardiovascular: RRR, no murmur, no edema Gastrointestinal (Abdomen): normal bowel sounds, soft, nontender, no hepatosplenomegaly Musculoskeletal: no cyanosis or clubbing, extremities motor strength 5/5 Head/Neck/Chest: normocephalic and head atraumatic Neurologic: PERRL, EOMI, accommodation nl, no face palsy, no dysarthria CN' s II-XI intact bilaterally Psychiatric: A+Ox3, euthymic affect
--- NOTE | 2018-01-23 12:20 | Discharge Summary ---
Date of Service January 23, 2018 Admission HPI Per Admitting Provider 57-year-old male who presents to the ED by referral of outpatient physician for evaluation of right leg pain. Patient reports over the past 2 weeks he has been having increasing right calf pain with walking. Pain has been progressively getting worse to the point where he develops pain with about 5 or 6 steps. Recently, he also has developed pain in his right groin area. Patient reports he feels like both of his feet are always cold. Patient reports he otherwise been feeling well recently. No other recent illnesses, fevers, chills. He denies chest pain shortness of breath. No lightheadedness, dizziness, diaphoresis, syncopal events. He denies abdominal pain, nausea, vomiting, diarrhea. No urinary symptoms. Patient was evaluated at [facility] today and had a venous Doppler ordered which was negative for DVT however showed right femoral artery occlusion. Patient was referred to the ED for further evaluation. In the ED, patient was found to be hypertensive with BP 198/111. He was started on IV heparin. Admission Exam Per Admitting Provider Constitutional: WD/WN, vitals as above Eyes: PERRL, conjunctivae normal, anicteric sclerae ENMT: external ear and nose normal, oropharynx normal Respiratory: normal respiratory effort, lungs clear to auscultation Cardiovascular: Rate/Rhythm: regular rate and regular rhythm Vessels: + abnormal peripheral pulses (Absent right pedal pulse, very diminished right posterior tibial pulse; diminished left pedal pulse, +2 left posterior tibial pulse) Extremities: no edema Both feet cool to touch Gastrointestinal (Abdomen): normal bowel sounds, soft, nontender, no hepatosplenomegaly Musculoskeletal: no cyanosis or clubbing, extremities motor strength 5/5 Skin: no rashes, warm and dry Neurologic: PERRL, EOMI, accommodation nl, no face palsy, no dysarthria Psychiatric: A+Ox3, euthymic affect Principal Diagnosis right Femoral artery occulusion (Claudication of right lower extremity), Hypertension / Hypertensive urgency, Tobacco use, Alcohol use Discharge Exam Constitutional WD/WN, vitals as above Eyes PERRL, conjunctivae normal, anicteric sclerae EOM intact bilaterally ENMT external ear and nose normal, oropharynx normal Neck trachea midline, no thyromegaly Respiratory normal respiratory effort, lungs clear to auscultation Cardiovascular RRR, no murmur, no edema Gastrointestinal (Abdomen) normal bowel sounds, soft, nontender, no hepatosplenomegaly Musculoskeletal no cyanosis or clubbing, extremities motor strength 5/5 Head/Neck/Chest: normocephalic and head atraumatic Neurologic PERRL, EOMI, accommodation nl, no face palsy, no dysarthria CN's II-XI intact bilaterally Psychiatric A+Ox3, euthymic affect Discharge Data Allergies Allergy/AdvReac Type Severity Reaction Status Date / Time Penicillins Allergy Severe Unknown Unverified 01/20/18 19:32 Consultations 01/20/18 22:03 Consult Vascular Surgery Routine 01/23/18 10:10 Consult Case Management - Discharge Planning Routine Procedures Performed Operation Date: 01/21/18 11:40 Actual Procedures p Right Lower Extremity Angiogram, Mechanical Arthrectomy of Right Superficial Femoral Artery, Percutaneous Transluminal Angioplasty and Stenting of the Right Superficial Femoral Artery, Mechanical Closure of Left Femoral Artery, Moderate Sedation from 1231- 1338.(Right) - Shon Baer MD s SC Select Cath Alep 3rd Order(Right) - Shon aBer MD s Fem Pop Stent Balloon Atherectomy(Right) - Shon Baer MD Ordered Studies 01/21/18 06:39 US liver Routine 01/21/18 07:34 EV angio LE RT Routine Hospital Course (1) Occlusion of right femoral artery: Occlusion of right femoral artery (Claudication of right lower extremity) -Patient presenting by referral of outpatient physician for evaluation of right leg pain after outpatient ultrasound showed right femoral artery occlusion -was placed on IV heparin and on 01/21/18, he had balloon angioplasty and stenting of an occluded right superficial femoral artery; off IV heparin -Plavix daily (2) Hypertension, uncontrolled: -BP elevated as high as 198/111 in ED on 01/20/18 presentation -While patient's blood pressure may be classified as hypertensive urgency, it is possible that patient's elevated blood pressure is chronically elevated -01/22/18: have stopped IV hydralazine prn because of facial flushing; Enalprilat 1.25 q12 hours as needed if sbp> 180, labetalol 10 mg IV q8 hours as needed if sbp > 180; pain control to minimize blood pressure elevations from discomfort -01/23/18; blood pressure appears better controlled and can be discharged on Losartan 50 mg daily and HCTZ 25 mg daily, expect that patient will have some hypertension that will need future monitoring and medication adjustments by primary care doctor (3) Alcohol abuse: -Patient reports drinking 4-6 beers per day -is on gabapentin protocol in case of alcohol withdrawal -Multivitamin, thiamine, folic acid -no evidence for delirium tremens at this time -recommend that patient drink alcohol in moderation, minimize alcohol use (4) Tobacco use: -Smokes 1.5 packs of cigarettes per day -Patient recommended to minimize smoking, has nicotine patch prescribed, minimize alcohol use or non-prescribed substances (5) Marijuana use: -Patient reports smoking 1 joint per day -Patient recommended to minimize smoking, has nicotine patch prescribed, minimize alcohol use or non-prescribed substances (6) Opiate use: -Hospitalist and patient have discussed his history of using Vicodin in the past without primary care doctor visits or primary care doctor prescriptions as patient in the past tried to self medicate leg pains in the past without doctors visits -Have checked [place] PDMP and no acute narcotic pain medications -01/23/18: pain appears better controlled today -Patient can take acetaminophen 325 mg every 4 hours as needed for mild leg pain, Patient can take ibuprofen every 6 hours as needed for moderate to severe leg pain (7) DVT prophylaxis: -ambulation as tolerated, continue plavix Discharge Instructions Patient had balloon angioplasty and stenting of an occluded right superficial femoral artery on 01/21/18. As per vascular surgeon Dr. Shon Baer, patient will need to take plavix (clopidogrel) Any concerns for leg issues patient can go to vascular surgery Dr. Shon Baer [address] [place] [address] [address], [place] [address] Patient should take losartan 50 mg daily and hydrochlorothiazide 25 mg daily. Patient should take low salt (less than 2 grams diet) to help control blood pressure Patient should have blood pressure and basic metabolic panel and renal function labs rechecked with primary care doctor on 01/28/2018 10:00 AM Provider Elton Calderon MD [facility] Patient can take acetaminophen 325 mg every 4 hours as needed for mild leg pain Patient can take ibuprofen every 6 hours as needed for moderate to severe leg pain Patient recommended to minimize smoking, has nicotine patch prescribed, minimize alcohol use or non-prescribed substances Total Time Total Time Spent Total Time Spent (In Minutes): 40 minutes Total Time Includes: Examination of the Patient, Discharge Planning and Medication Reconciliation Discharge Plan Discharge Items Patient Disposition: Home - Self-Care Reason For Visit: FEMORAL ARTERY OCCLUSION Discharge Diagnosis: right Femoral artery occulusion (Claudication of right lower extremity), Hypertension / Hypertensive urgency, Tobacco use, Alcohol use Condition: Good Discharge Goals: Decrease discomfort and Improve disease control Activity: Resume your previous activity Non-emergency contact: Primary Care Provider Call non-emergency contact if: you have any medication questions Diet: Low Sodium (2gm) Addtl Provider Instructions: Patient is to be discharged to home Patient had balloon angioplasty and stenting of an occluded right superficial femoral artery on 01/21/18. As per vascular surgeon Dr. Shon Baer, patient will need to take plavix (clopidogrel) Any concerns for leg issues patient can go to vascular surgery Dr. Shon Baer [facility] [address] [place] [address] Patient should take losartan 50 mg daily and hydrochlorothiazide 25 mg daily. Patient should take low salt (less than 2 grams diet) to help control blood pressure Patient should have blood pressure and basic metabolic panel and renal function labs rechecked with primary care doctor on 01/28/2018 10:00 AM Provider Elton Calderon MD Department [facility] Patient can take acetaminophen 325 mg every 4 hours as needed for mild leg pain Patient can take ibuprofen every 6 hours as needed for moderate to severe leg pain Patient recommended to minimize smoking, has nicotine patch prescribed, minimize alcohol use or non-prescribed substances Prescriptions: New nicotine [Nicoderm CQ] 14 mg/24 hr Patch 24 Hour 14 mg Transdermal QAM 30 Days Qty: 30 RF: 0 clopidogrel 75 mg Tablet 75 mg PO QAM 30 Days Qty: 30 RF: 0 hydrochlorothiazide 25 mg Tablet 25 mg PO QAM 30 Days Qty: 30 RF: 0 acetaminophen [Mapap (acetaminophen)] 325 mg Tablet 325 mg PO Q4H PRN (Reason: pain, mild) 5 Days Qty: 30 RF: 0 ibuprofen 200 mg Tablet 200 mg PO Q6H PRN (Reason: pain, moderate) 5 Days Qty: 20 RF: 0 losartan 25 mg Tablet 50 mg PO QAM 30 Days Qty: 60 RF: 0 Visit Report Forms: [facility] Stand-Alone Forms: [facility] Discharge Orders: Discharge Order (Routine); Ordered 01/23/18 Ordered By: Marcos Hightower Admission Data Admit Date/Time: 01/20/18 20:46 Attending Provider: Marcos Hightower Admit Provider: Hank Valdez Primary Care Provider: Elton Calderon Other Providers: Shon Baer Service: Telemetry Medical
[2018-01-23] MEDS ORDERED: LOSARTAN POTASSIUM 25 MG TAB PO ONE (12:30)
[2018-01-25] MEDS ORDERED: GABAPENTIN 600 MG TAB PO SCH (10:00)
--- NOTE | 2018-03-01 13:21 | Operative Report ---
Post Operative Report Pre & Post Diagnosis Operation Date: 01/21/18 11:40 Pre-Op Diagnosis: FEMORAL ARTERY OCCLUSION WITH SEVERE CLAUDICATION Post-Op Diagnosis: FEMORAL ARTERY OCCLUSION WITH SEVERE CLAUDICATION Procedure Operation Date: 01/21/18 11:40 Actual Procedures p Right Lower Extremity Angiogram, Mechanical Arthrectomy of Right Superficial Femoral Artery, Percutaneous Transluminal Angioplasty and Stenting of the Right Superficial Femoral Artery, Mechanical Closure of Left Femoral Artery, Moderate Sedation from 1231- 1338.(Right) - Shon Baer MD s SC Select Cath Alep 3rd Order(Right) - Shon Baer MD s Fem Pop Stent Balloon Atherectomy(Right) - Shon Baer MD Surgeon Shon Baer MD [employer] None Estimated Blood Loss 20 Findings Consistent with Post-Op Diagnosis Specimens None Anesthesia Type General Complications none Disposition Accompanied Patient To Recovery: No Disposition: Recovery Room Indications This is a 58-year-old gentleman who presented with severe claudication right lower extremity extremely short distances. Arteriography and possible intervention was recommended. He did have an ultrasound which of the right superficial femoral artery occlusion. I have discussed the risks options and benefits of the procedure with the patient. The patient understands the risks options and benefits and agrees to the procedure. Description of Procedure The patient was taken to the angiogram suite and placed in supine position after general anesthesia was accomplished both groins and the right lower extremity were prepped draped in a sterile manner. Percutaneous puncture was made of the left common femoral artery and a 5 [place]an sheath inserted. 035 Glidewire and room catheter was then inserted. The right side was cannulated from the left side. The room catheter was exchanged to a quick cross. This was passed down to the distal external iliac artery. Hand injection showed the iliac arteries to be patent. The common femoral artery) profundofemoral artery was also patent. There is complete occlusion of the superficial femoral artery down to the adductor hiatus. There is reconstitution of popliteal with three- vessel runoff. We then exchanged the quick cross over an 035 wire. We used an 035 stiff wire. This was passed down through the lesion of the superficial femoral artery. It appeared to be in the popliteal artery and true lumen. We then exchanged the 5 Chilean sheath to an 8 Chilean 45 cm destination. The quick cross was reinserted. This was passed down over the wire to the right popliteal and hand injection performed. This showed the catheter to be true lumen. We then exchanged the wire 1001 4 jet wire. We then used a 2.1 jetstream catheter and performed mechanical arthrectomy of the right superficial femoral artery. We then made 2 passes one with blades down while in place up. We then did an arteriogram which showed the femoral artery to be patent. The catheter was then removed. We then passed a 5 x 150 mm loop tonics balloon over the wire. We balloon the superficial femoral artery in the area of occlusion for 3 minutes. The balloon was then removed. There is still residual stenosis and a small flap seen. The right femoral artery was then stented from the adductor proximally with a 7 mm x 15 cm via bocanegra stent. This was expanded with a 6 x 100 [place] balloon. An injection and showed the superficial femoral artery widely patent with good runoff. The wire was exchanged and an 035 wire. The destination sheath was then removed. The puncture site of the left femoral artery was closed using a Star closure device. Adequate hemostasis was noted to the puncture site. There is good flow in both feet at the end of the procedure. Sterile dressings were then applied.The patient left the operation room in satisfactory condition and tolerated the procedure well. All needle and sponge counts were correct at the end of the procedure. I attest to the content of the Intraoperative Record and any orders documented therein. Any exceptions are noted below.
== END 2018-01-23 13:15 | disposition home or self-care (01) | DRG 271 ==
LOC: ED 18:54 → 3W 20:46 → 2W 01-22 18:33

== ENCOUNTER 2019-12-10 18:37 | Inpatient (IN) ==
--- NOTE | 2019-12-10 19:45 | Emergency Department Note ---
Impression & Plan Arterial occlusion, Acute leg pain, Smoker ED Provider Note NAME: SHERLY GARZA AGE: 59 SEX: M : 1960 ARRIVES VIA: Walk-In INFORMANT: Patient ED PROVIDER(S): Pedrito Mack DO CHIEF COMPLAINT: Right calf pain HPI: Patient is a 59-year-old male who presents to ER for right calf pain. Patient has a history of an occlusion of the right femoral artery which he had surgery on by Dr. Baer about 2 years ago. He notes that symptoms started this past . He cannot take any more than 5 steps and has severe crushing pain. No tingling or numbness. No weakness. This feels exactly like his previous occlusion. Denies any headache, change in vision, chest pain shortness of breath nausea vomiting or diarrhea. Still smoking. Takes no blood thinners. No coughing up blood, vomiting blood, urinating blood, dark tarry stools or bright red blood per rectum. No trauma or recent surgeries. No previous brain bleeds. ROS: See above HPI for pertinent positives & negatives. A total of 10 systems reviewed and were otherwise negative. PAST MEDICAL HISTORY:See Below PAST SURGICAL HISTORY:See Below FAMILY HISTORY:See Below SOCIAL HISTORY:See Below HOME MEDICATIONS:See Below ALLERGIES:See Below VITALS:See Below PHYSICAL EXAMINATION: GENERAL: Sitting up in bed, alert, Mild distress EYE EXAM: normal conjunctiva. OROPHARYNX: no exudate, no erythema, lips, buccal mucosa, and tongue normal and mucous membranes are moist NECK: supple, no nuchal rigidity, no adenopathy, non-tender LUNGS: Clear to auscultation. Normal chest wall mechanics HEART: no murmurs, S1 normal and S2 normal ABDOMEN: abdomen soft, non-tender, normo-active bowel sounds, no masses, no rebound or guarding. UPPER EXTREMITIES: upper extremities are grossly normal. LOWER EXTREMITIES: No pitting edema. Calves are equal bilateral. Flexion- extension of the right hip knee and ankle are intact. Unable to palpate DP or PT pulse. Skin is warm. Cap refill 7 seconds NEURO EXAM: Normal sensorium, cranial nerves II-XII grossly intact, normal speech, no gross weakness of arms, no gross weakness of legs. MEDICAL DECISION MAKING: Patient is a 59-year-old male who presents the ER for severe right calf pain. Unable to appreciate DP and PTs. Cap refill was about 7 seconds. IV was established blood work was obtained. Labs show no significant leukocytosis or anemia. BMP with mild hypokalemia and hypo-chloremia. LFTs are slightly elevated. Bilirubin was normal. Lipase was normal. Duplex was negative. Ultrasound shows an occluded mid and distal stent in the SFA. Patient is symptomatic. After prolonged discussion with the patient and Dr. Baer via telephone patient was placed on a heparin drip and given a heparin bolus and was admitted to the hospitalist. Dr. Baer will evaluate him in the morning and likely take him to the OR. Cover test was ordered. Discussed with Dr. Merida who for further evaluation. Triage Nursing notes reviewed. Prior medical records reviewed Vital Signs: reviewed and remarkable for no significant abnormalities Differential diagnosis: DVT, musculoskeletal, infection, joint effusion, trauma, lymphedema, idiopathic, CHF, as well as other pathologies. ER treatment provided: See below Diagnostics interpreted by me: ECG: none Cardiac Monitoring: An order was placed for continuous cardiac monitoring. The monitor shows a rate of 75 with sinus rhythm. Laboratory studies: As stated above and show below. Imaging studies: US ARTERIAL RIGHT LOWER EXTREMITY: FINISHER WALLBOARD AND PLASTERBOARD- triphasic, 45cm/s PROFUNDA- triphasic, 129cm/s SFA PROX- biphasic, slow flow 16cm/s SFA MID- OCCLUDED, this is where stent begins SFA DIST- OCCLUDED, stent ends here POP A- monophasic, 26cm/s, collateral vessel feeding proximally SPECIAL EDUCATION ASSOCIATE- monophasic, 18cm/s LOULOU A- monophasic, 6cm/s MAHESH- monophasic, 15cm/s DPA- monophasic, 8cm/s Venous Doppler was unremarkable Consultation(s): Discussed with Dr. Baer recommends admission and heparin ED COURSE: Procedures: none Critical Care: I have personally spent 35 minutes of critical care time in the direct management of this patient. This includes bedside care, interpretation of diagnostic studies, and testing, discussion with consultants, patient, and family members, and other required patient management activities. This 35 minutes is in excess of all separately billable procedures. Past Med/Surg History Medical History (Updated 12/10/19 @ 23:28 by Pedrito Mack DO) Coagulation problem HTN (hypertension) Leg fracture, right s/p repair Surgical History S/P wrist surgery right Family History Mother Healthy adult 78 years old, alive and well Social History Smoking Status: Never smoker Cigarettes Per Day: Half and a pack per day; Second Hand Exposure: No; Hx Alcohol Use: Yes Alcohol type: beer Hx Substance Use: Yes Last Used Substance: Days (ago) Last Used Substance Other:: A joint a day; yesterday evening Preferred Language: British [employer] Required: No Beliefs That Will Affect Care: None Current Living Situation: Family Current Living Situation Comment: With 2 grandsons Feels Safe at Home: Yes Assistive Devices: Walker Allergies Allergies Allergy/AdvReac Type Severity Reaction Status Date / Time Penicillins Allergy Severe Unknown Unverified 12/10/19 22:45 Home Meds Home Medications Medication Instructions Recorded Confirmed hydrochlorothiazide 25 mg PO QAM 12/10/19 12/10/19 losartan 50 mg PO QAM 12/10/19 12/10/19 Results & Data (ED) Vital Signs Vital Signs - 24 hr 12/10/19 18:49 12/10/19 22:03 12/10/19 23:12 Temperature 37.0 C Temperature Source Oral Pulse Rate 81 Pulse Rate [Right Finger] 76 Respiratory Rate 18 18 Respiratory Effort / Characteristics Non-Labored Spontaneous Respiratory Depth Normal Respiratory Pattern Regular Blood Pressure 130/80 Blood Pressure [Left Arm] 156/85 H Blood Pressure Mean 96 Blood Pressure Mean [Left Arm] 108 Blood Pressure Position Sitting Blood Pressure Position [Left Arm] Sitting Pulse Oximetry 98 96 93 Oxygen Delivery Method Room Air Room Air Nasal Cannula Oxygen Flow Rate 4 Sepsis Recent Fever Within 48 Hours No Sepsis New/Unexplained Change in Mental Status No Sepsis Action Taken by Nursing No Action Required Laboratory Data Result diagrams: 12/10/19 19:57 12/10/19 19:57 Lab Results 12/10/19 12/10/19 12/10/19 Range/Units 19:57 19:57 19:57 WBC 10.65 (4.8-10.8) K/uL RBC 4.44 L (4.7-6.1) M/uL Hgb 16.2 (14.0-18.0) g/dL Hct 43.6 (42-52) % MCV 98.2 (80-100) fL MCH 36.5 H (25-34) pg MCHC 37.2 H (32-36) g/dL RDW Std Deviation 42.4 (36.4-46.3) fL RDW Coeff of Caesar 11.8 (11.5-14.5) % Plt Count 166 (130-400) K/uL MPV 9.2 (7.4-10.4) fL Immature Gran % (Auto) 0.1 % Neut % (Auto) 48.4 % Lymph % (Auto) 37.7 % Daniels % (Auto) 9.3 % Eos % (Auto) 4.1 % Baso % (Auto) 0.4 % Neut # (Auto) 5.16 (1.4-6.5) K/uL Lymph # (Auto) 4.01 H (1.2-3.4) K/uL Daniels # (Auto) 0.99 H (0.11-0.59) K/uL Eos # (Auto) 0.44 (0-0.5) K/uL Baso # (Auto) 0.04 (0-0.2) K/uL Immature Gran # (Auto) 0.01 (0.00-0.02) K/uL APTT 26.9 (21.0-31.0) Seconds PTT Ratio 1.0 Sodium 130 L (136-145) mmol/L Potassium 3.4 L (3.5-5.1) mmol/L Chloride 93 L (98-107) mmol/L Carbon Dioxide 28 (21-32) mmol/L Anion Gap 9.0 (3-11) BUN 13 (7-18) mg/dl Creatinine 1.18 (0.6-1.4) mg/dl Est Cr Clr Drug Dosing Not Reportable Est GFR ( Amer) 76.7 Est GFR (Non-Af Amer) 66.2 BUN/Creatinine Ratio 10.7 (10-20) Glucose 88 (70-99) mg/dl Calcium 8.9 (8.5-10.1) mg/dl Total Bilirubin 0.8 (0.2-1) mg/dl AST 63 H (15-37) U/L ALT 85 H (12-78) U/L Alkaline Phosphatase 89 (45-117) U/L Total Protein 8.5 H (6.4-8.2) gm/dl Albumin 3.9 (3.4-5.0) gm/dl Globulin 4.6 H (2.5-4.0) gm/dl Albumin/Globulin Ratio 0.8 L (0.9-2) Lipase 144 (73-393) U/L COVID-19 Eval Order 12/10/19 Range/Units 23:09 WBC (4.8-10.8) K/uL RBC (4.7-6.1) M/uL Hgb (14.0-18.0) g/dL Hct (42-52) % MCV (80-100) fL MCH (25-34) pg MCHC (32-36) g/dL RDW Std Deviation (36.4-46.3) fL RDW Coeff of Caesar (11.5-14.5) % Plt Count (130-400) K/uL MPV (7.4-10.4) fL Immature Gran % (Auto) % Neut % (Auto) % Lymph % (Auto) % Daniels % (Auto) % Eos % (Auto) % Baso % (Auto) % Neut # (Auto) (1.4-6.5) K/uL Lymph # (Auto) (1.2-3.4) K/uL Daniels # (Auto) (0.11-0.59) K/uL Eos # (Auto) (0-0.5) K/uL Baso # (Auto) (0-0.2) K/uL Immature Gran # (Auto) (0.00-0.02) K/uL APTT (21.0-31.0) Seconds PTT Ratio Sodium (136-145) mmol/L Potassium (3.5-5.1) mmol/L Chloride (98-107) mmol/L Carbon Dioxide (21-32) mmol/L Anion Gap (3-11) BUN (7-18) mg/dl Creatinine (0.6-1.4) mg/dl Est Cr Clr Drug Dosing Est GFR ( Amer) Est GFR (Non-Af Amer) BUN/Creatinine Ratio (10-20) Glucose (70-99) mg/dl Calcium (8.5-10.1) mg/dl Total Bilirubin (0.2-1) mg/dl AST (15-37) U/L ALT (12-78) U/L Alkaline Phosphatase (45-117) U/L Total Protein (6.4-8.2) gm/dl Albumin (3.4-5.0) gm/dl Globulin (2.5-4.0) gm/dl Albumin/Globulin Ratio (0.9-2) Lipase (73-393) U/L COVID-19 Eval [facility] Administered Medications Discontinued Medications Heparin Sodium (Porcine) (Heparin Sod 5,000 Unit/0.5 Ml Vial) Confirm Administered Dose 5,000 units .ROUTE .STK-MED ONE Stop: 12/10/19 22:52 Last Admin: 12/10/19 23:02 Dose: 5,000 units Documented by: [id number] Cosigned by: [id number] Discharge Plan Visit Data Chief Complaint: Leg Injury/Pain Stated Complaint: RT LEG PAIN, SWELLING, DVT Hx ED Provider: Pedrito Mack Discharge Problem: Arterial occlusion, Acute leg pain, Smoker Forms Stand Alone Forms: [facility] Prescriptions Prescriptions: No Action losartan 25 mg tablet 50 mg PO QAM RF: 0 hydrochlorothiazide 25 mg tablet 25 mg PO QAM RF: 0 Discharge Problem: Acute leg pain Qualifiers: Laterality: right Qualified Code(s): M79.604 - Pain in right leg
[2019-12-10 20:14] LABS: Basophils # (auto) 0.04 K/uL (0-0.2); Basophils % (auto) 0.4 %; Eosinophils # (auto) 0.44 K/uL (0-0.5); Eosinophils % (auto) 4.1 %; Hematocrit (blood only) 43.6 % (42-52); Hemoglobin 16.2 g/dL (14.0-18.0); Immature Granulocytes # (auto) 0.01 K/uL (0.00-0.02); Immature Granulocytes % (auto) 0.1 %; Lymphocytes # (auto) 4.01 K/uL (1.2-3.4); Lymphocytes % (auto) 37.7 %; Mean Corpuscular Hemoglobin 36.5 pg (25-34); Mean Corpuscular Hgb Conc 37.2 g/dL (32-36); Mean Corpuscular Volume 98.2 fL (80-100); Mean Platelet Volume 9.2 fL (7.4-10.4); Monocytes # (auto) 0.99 K/uL (0.11-0.59); Monocytes % (auto) 9.3 %; Neutrophils # (auto) 5.16 K/uL (1.4-6.5); Neutrophils % (auto) 48.4 %; Platelet Count 166 K/uL (130-400); RDW Coefficient of Variation 11.8 % (11.5-14.5); RDW Standard Deviation 42.4 fL (36.4-46.3); Red Blood Count 4.44 M/uL (4.7-6.1); White Blood Count 10.65 K/uL (4.8-10.8)
[2019-12-10 20:30] LABS: Alanine Aminotransferase 85 U/L (12-78); Albumin Level 3.9 gm/dl (3.4-5.0); Aspartate Aminotransferase 63 U/L (15-37); BUN Creatinine Ratio 10.7 (10-20); Blood Urea Nitrogen 13 mg/dl (7-18); Calcium 8.9 mg/dl (8.5-10.1); Carbon Dioxide 28 mmol/L (21-32); Chloride 93 mmol/L (98-107); Est GFR (African American) 76.7; Est GFR (Non-African American) 66.2; Glucose 88 mg/dl (70-99); Lipase 144 U/L (73-393); Potassium 3.4 mmol/L (3.5-5.1); Sodium 130 mmol/L (136-145)
[2019-12-10 20:33] LABS: Albumin Globulin Ratio 0.8 (0.9-2); Alkaline Phosphatase 89 U/L (45-117); Bilirubin,Total 0.8 mg/dl (0.2-1); Globulin 4.6 gm/dl (2.5-4.0); Total Protein 8.5 gm/dl (6.4-8.2)
[2019-12-10] MEDS ORDERED: HEPARIN SOD 5,000 UNIT/0.5 ML VIAL ONE (22:51)
[2019-12-10] MEDS: HEPARIN SODIUM/DEXTROSE 25,000 UNITS/500 ML BAG IV SCH ×2 (23:01→23:51)
--- NOTE | 2019-12-10 23:05 | Ultrasound Report ---
ULTRASOUND RIGHT LOWER EXTREMITY VENOUS CLINICAL HISTORY: Right calf pain. COMPARISON STUDY: Right lower extremity venous ultrasound dated 01/20/2018. TECHNIQUE: Real-time, grayscale, and color Doppler sonography of the deep veins of the right lower ex tremity was performed from the inguinal crease to the calf. Compression and augmentation were utilize d. FINDINGS: There is no sonographic evidence of deep venous thrombosis identified in the right lower ex tremity. The common femoral, superficial femoral, and popliteal veins are patent and normally alfonso sible. The greater saphenous vein and the profunda femoris vein at the junction with the common femor al vein are clear. The visualized calf veins are patent. IMPRESSION: There is no sonographic evidence of deep venous thrombosis identified in the right lower extremity. ACT 112: Negative or not required by law. Electronically signed by: Lino Yan M.D. 12/10/2019 11:03 PM
[2019-12-10 23:18] LABS: Partial Thromboplastin Time 26.9 Seconds (21.0-31.0)
[2019-12-11] MEDS ORDERED: NITROGLYCERIN SL 0.4 MG/TAB TAB SL PRN (00:39)
[2019-12-11] MEDS ORDERED: ONDANSETRON INJ 2 MG/ML 2 ML VIAL IV PRN (00:39)
[2019-12-11] MEDS ORDERED: LORazepam 1 MG/2 ML VIAL IV PRN (00:39)
[2019-12-11] MEDS ORDERED: GABAPENTIN 1200MG ALCOHOL WITHDRAWAL LOAD PO STA (00:39)
[2019-12-11] MEDS ORDERED: ACETAMINOPHEN 325 MG TAB PO PRN (00:39)
[2019-12-11] MEDS ORDERED: POLYETHYLENE (MIRALAX) 17 GM PACK PO PRN (00:39)
[2019-12-11] MEDS ORDERED: MULTI-VITAMIN INFUSION 10 ML, THIAMINE HCL 100 MG, FOLIC ACID 1 MG in SODIUM CHLORIDE 0... IV ONE (00:39)
[2019-12-11] MEDS ORDERED: GABAPENTIN 600 MG TAB PO ONE (00:39)
--- NOTE | 2019-12-11 00:55 | History and Physical Report ---
DATE OF ADMISSION: 12/10/2019 CHIEF COMPLAINT: Right lower extremity pain. HISTORY OF PRESENT ILLNESS: This is a 59-year-old male with past medical history significant for hypertension, ongoing tobacco abuse, history of peripheral vascular disease, status post occlusion of right femoral artery in 2018, status post balloon angioplasty and stenting of occluded superficial femoral artery, comes because of ongoing pain in the right lower extremity. The patient states since last whenever he was walking, he is having pain in the right lower extremity below knee, he could not walk more than 5 steps, he has to take rest because of pain, which prompted him to come to the ER. In the ER, the ultrasound shows no DVT, but arterial doppler shows superficial femoral artery mid occluded and distal occlusion above the stent and below the stent. ER physician talked to the vascular surgery. The patient was started on IV heparin and will be evaluated by Vascular Surgery in a.m. for possible procedure. The patient is currently resting comfortably and hemodynamically stable. He says when he is resting, there is no pain. Currently, denies any other complaints. He has smoker's cough. Denies any headache, no blurred vision, no earache, no runny nose, no sore throat, no dysphagia, no nausea, no abdominal pain, no chest pain, no shortness of breath. Normal bowel and bladder movements. Denies any bloody stools. Currently, the patient says he is raising two grandkids and is taking care of himself and is not exposed to COVID virus. ALLERGIES: PENICILLINS. PAST MEDICAL HISTORY: As mentioned above. PAST SURGICAL HISTORY: Stenting of the right superficial femoral artery. MEDICATIONS: The patient is on hydrochlorothiazide 25 mg p.o. daily, losartan 50 mg p.o. a.m. FAMILY HISTORY: In file. SOCIAL HISTORY: Lives with his grandkids. Smokes 1 pack a day. Alcohol, per records, REVIEW OF SYMPTOMS: As per HPI. Rest of the review of symptoms negative. PHYSICAL EXAMINATION: GENERAL: The patient is of moderate build, not in acute distress. VITAL SIGNS: Temperature 37, pulse 76, respiratory rate 18, blood pressure 156/85 and oxygen 96% on room air. HEENT: Pupils equal, round, reactive to light. Oral mucosa moist. NECK: No JVD, no neck masses. CARDIOVASCULAR: S1, S2 heard, regular rate and rhythm, no murmur, no gallop. RESPIRATORY SYSTEM: Normal AP diameter. No accessory muscle use. No wheezing, no crackles. ABDOMEN: Soft, bowel sounds present, nontender. No distention. CENTRAL NERVOUS SYSTEM: Cranial nerves II-XII grossly intact, nonfocal. EXTREMITIES: Right lower extremity is somewhat cold to palpation of the feet, fright dorsipedal pulse feeble, no tenderness on palpation. No erythema or swelling seen. LABORATORY DATA: WBC 10.6, hemoglobin 16.2, hematocrit 43.6, platelets 166. Sodium 130, potassium 3.4, chloride 93, bicarbonate 28, BUN 13, creatinine 1.18, serum glucose 88, calcium 8.9, total bilirubin 0.8, AST 63, ALT 85, alkaline phosphatase 89. Lipase 144. Venous Doppler, no DVT in the right lower extremity. Arterial Doppler of the right lower extremity shows occlusion of the SFA above and below the stent. ASSESSMENT AND PLAN: A 59-year-old male who presents with right lower extremity pain and found to have occluded right superficial femoral artery. 1. Occluded right superficial femoral artery, history of stenting to the right femoral artery, occluded above and below the stent. Vascular Surgery was notified by the ER. Currently on IV heparin. The pain is more when he is walking, and when he is resting, there is no pain. We will keep him n.p.o., continue IV heparin and will consult Vascular Surgery for possible procedure in a.m. Closely monitor in tele floor. 2. History of hypertension. We will continue home hydrochlorothiazide and losartan, will monitor blood pressure. 3. Ongoing tobacco abuse, needs counseling. 4. Alcoholism.banana bag. po thiamine and folic acid.gabapentin protocol with iv ativan prn 5. Deep venous thrombosis prophylaxis venous thrombosis prophylaxis, on IV heparin. DISPOSITION: Admit to tele floor. Expect discharge home and follow with family doctor. Level 1 full code. MTDD
[2019-12-11 01:10] LABS: Basophils # (auto) 0.05 K/uL (0-0.2); Basophils % (auto) 0.5 %; Eosinophils # (auto) 0.61 K/uL (0-0.5); Eosinophils % (auto) 6.1 %; Hematocrit (blood only) 42.1 % (42-52); Hemoglobin 15.7 g/dL (14.0-18.0); Immature Granulocytes # (auto) 0.03 K/uL (0.00-0.02); Immature Granulocytes % (auto) 0.3 %; Lymphocytes # (auto) 4.49 K/uL (1.2-3.4); Lymphocytes % (auto) 44.7 %; Mean Corpuscular Hemoglobin 36.3 pg (25-34); Mean Corpuscular Hgb Conc 37.3 g/dL (32-36); Mean Corpuscular Volume 97.5 fL (80-100); Mean Platelet Volume 9.1 fL (7.4-10.4); Neutrophils # (auto) 4.16 K/uL (1.4-6.5); Neutrophils % (auto) 41.4 %; Platelet Count 137 K/uL (130-400); RDW Coefficient of Variation 11.8 % (11.5-14.5); RDW Standard Deviation 42.4 fL (36.4-46.3); Red Blood Count 4.32 M/uL (4.7-6.1); White Blood Count 10.04 K/uL (4.8-10.8)
[2019-12-11 01:26] LABS: INR 1.1 (0.9-1.1); Prothrombin Time 11.6 Seconds (9.0-12.0)
[2019-12-11 01:28] LABS: BUN Creatinine Ratio 12.2 (10-20); Calcium 8.7 mg/dl (8.5-10.1); Creatinine Clr Calc Pharmacy 76.6 ml/min; Est GFR (African American) 87.4; Est GFR (Non-African American) 75.4; Magnesium 2.1 mg/dl (1.8-2.4); Potassium 3.6 mmol/L (3.5-5.1)
[2019-12-11] MEDS: SODIUM CHLORIDE 0.9% 1000ML 1,000 ML IV SCH ×3 (03:27→21:25)
[2019-12-11 07:13] LABS: Partial Thromboplastin Ratio 2.9
[2019-12-11 07:16] LABS: Partial Thromboplastin Time 80.6 Seconds (21.0-31.0)
[2019-12-11] MEDS: GABAPENTIN 600 MG TAB PO SCH ×3 (08:40→21:50)
[2019-12-11] MEDS: THIAMINE HCL 100 MG TAB PO SCH (08:40)
[2019-12-11] MEDS: hydroCHLOROthiazide 25 MG TAB PO SCH (08:40)
[2019-12-11] MEDS: LOSARTAN POTASSIUM 50 MG TAB PO SCH (08:40)
[2019-12-11] MEDS: ASPIRIN 81 MG ECTAB PO SCH (08:41)
[2019-12-11] MEDS: FOLIC ACID 1 MG in SYRINGE 9.8 ML IV SCH (08:41)
[2019-12-11] MEDS: CEROVITE ADV FORMULA TAB PO SCH (08:41)
--- NOTE | 2019-12-11 08:55 | Ultrasound Report ---
RIGHT LOWER EXTREMITY ARTERIAL DOPPLER ULTRASOUND CLINICAL HISTORY: severe pain with walking COMPARISON STUDY: No previous studies for comparison. TECHNIQUE: Bilateral ankle to brachial indices were obtained. Grayscale, color and duplex Doppler son ography of the arterial system of the right lower extremity was performed. FINDINGS: The right brachial index measured 0.57 when using posterior tibial artery and 0.22 when usi ng the dorsalis pedis. The left ankle to brachial index measured 1.19 when using posterior tibial art diane 1.17 when using the dorsalis pedis. There is extensive atherosclerotic plaque within the right lo wer extremity. There is triphasic flow within the right common femoral artery and the right profunda. There is biphasic flow within the proximal right superficial femoral artery although velocities are diminished. A stent within the mid to distal right superficial femoral artery is noted. The stent is occluded. There is dampened, monophasic flow within the right popliteal, anterior tibial, posterior t ibial, dorsalis pedis and peroneal arteries through collaterals. IMPRESSION: 1. Occluded right superficial femoral artery stent with dampened, monophasic flow distal to site of o cclusion. Significantly diminished right ankle brachial index. 2. Extensive atherosclerotic plaque within the right lower extremity. ACT 112: Negative or not required by law. Electronically signed by: Scott Hill M.D. 12/11/2019 8:53 AM
--- NOTE | 2019-12-11 08:57 | Consultation ---
Date of Consultation December 11, 2019 Assessment & Plan (1) Arterial occlusion: Pt with RLE arterial occlusion and severe claudication. No indications of rest pain at this time. Pt discussed with Dr Baer, recommends pt undergo RLE angio with intervention on WEDNESDAY. Pt agreeable. Pt knows to let nursing know if he develops pain in R foot/toes when in bed, so they can notify Dr Baer or myself. History of Present Illness Reason for Consultation: RLE claudication Attending Physician: Catrachita Savage MD History of Present Illness 59 yo m with hx of severe PAD and HTN, known to Dr Baer for previous RLE angiogram with stent of SFA, seen in consultation today for severe RLE claudication for past 4 days. Pt states he is only able to take about 5 steps before noting severe pain in R calf which makes him stop walking. After resting a few minutes, he is able to walk about the same distance again. States sx are same as the last time Dr Baer had to intervene. Pt denies pain in R toes/foot when sleeping/elevated. Denies discoloration or numbness. Denies DOTY,fever, chills, chest pain, SOB, abd pain, N/V, nonhealing wounds, other complaints. Arterial US demonstrates R SFA occlusion in stents and monophasic flow distally, with GIOVANNY or 0.5 Allergies Allergy/AdvReac Type Severity Reaction Status Date / Time Penicillins Allergy Severe Unknown Unverified 12/10/19 22:45 Home Medications Home Medications Medication Instructions Recorded Confirmed Type hydrochlorothiazide 25 mg PO QAM 12/10/19 12/10/19 History losartan 50 mg PO QAM 12/10/19 12/10/19 History Patient History Medical History Coagulation problem HTN (hypertension) Leg fracture, right s/p repair Surgical History S/P wrist surgery right Family History Mother Healthy adult 78 years old, alive and well Social History Smoking Status: Current every day smoker Cigarettes Per Day: 20; Second Hand Exposure: No; Hx Alcohol Use: Yes Alcohol type: beer Hx Substance Use: Yes Last Used Substance: Hours (ago) Last Used Substance Other:: A joint a day; yesterday evening Preferred Language: Cymraes Svp Of Digital Required: No Beliefs That Will Affect Care: None Current Living Situation: Family Current Living Situation Comment: With 2 grandsons Other Information That Helps Us Care for You: No Feels Safe at Home: No Is there a partner from a previous relationship who is making you feel unsafe now?: No Any Concerns about Your Family Situation: No Would You Like to Speak to Someone About Your Situation: No Safety Concerns: Feels Safe At This Time Assistive Devices: None Review of Systems Review of Systems: All systems reviewed & are unremarkable except as noted in HPI & below Physical Exam Constitutional: WD/WN, vitals as above healthy appearing, cooperative and comfortable; not in distress Eyes: PERRL, conjunctivae normal, anicteric sclerae ENMT: Ears: no hearing impairment and no external ear abnormality Neck: normal visual inspection and trachea midline Respiratory: normal respiratory effort, lungs clear to auscultation Auscultation: + diminished lung sounds Cardiovascular: RRR, no murmur, no edema Vessels: femoral pulses present, posterior tibial pulses present (LLE +2, RLE good doppler), dorsalis pedis pulses present (LLE +1, RLE no doppler), brachial pulses present and radial pulses present; + abnormal peripheral pulses Extremities: + abnormal capillary refill (RLE delayed at 7 seconds) and no edema Gastrointestinal (Abdomen): normal bowel sounds, soft, nontender, no hepatosplenomegaly Musculoskeletal: no cyanosis or clubbing, extremities motor strength 5/5 Skin: no rashes, warm and dry (dependent rubor noted to R foot) Neurologic: moves all extremities and awake; no focal motor deficits, not confused and not obtunded Psychiatric: A+Ox3, euthymic affect Results & Data ([facility]) Vital Signs (Past 12 Hours) Vital Signs Temp Pulse Resp BP Pulse Ox 12/11/19 07:58 36.7 C 66 20 155/76 H 98 12/11/19 00:37 36.6 C 80 16 179/108 H 98 12/10/19 23:52 73 18 95 12/10/19 23:12 93 12/10/19 22:03 76 18 156/85 H 96
[2019-12-11 16:21] LABS: Partial Thromboplastin Ratio 1.7
[2019-12-11 16:22] LABS: Partial Thromboplastin Time 48.6 Seconds (21.0-31.0)
--- NOTE | 2019-12-11 19:00 | Hospitalist Progress Note ---
Date of Service December 11, 2019 Assessment & Plan (1) Peripheral arterial occlusive disease: Pt presented with RLE pain US shows : arterial occlusion and severe claudication. pt started on IV heparin vascular surgery consulted , plan for RLE angio with intervention on WEDNESDAY. cont on anticoagulation till then HTN ; hold Diuretics as pt will receive contrast for vascular intervention ordered for [facility] HX OF ETOH ABUSE : cont gabapentin protocol Admission and Anticipated Discharge Date Admission Date: December 10, 2019 Subjective Denies of any discomfort, says no complaint of leg pain while at rest, develops claudication pain after attempting to walk 2-3 steps No complaint of shortness of breath, no cough no fever chills Physical Exam Constitutional: WD/WN, vitals as above Eyes: PERRL, conjunctivae normal, anicteric sclerae ENMT: external ear and nose normal, oropharynx normal Neck: trachea midline, no thyromegaly Respiratory: normal respiratory effort, lungs clear to auscultation Cardiovascular: RRR, no murmur, no edema Gastrointestinal (Abdomen): normal bowel sounds, soft, nontender, no hepatosplenomegaly Neurologic: PERRL, EOMI, accommodation nl, no face palsy, no dysarthria Psychiatric: A+Ox3, euthymic affect Results & Data Results & Data ([facility] [place]) Vital Signs (Past 12 Hours) Vital Signs Temp Pulse Pulse Resp BP Pulse Ox 12/11/19 18:52 37.1 C 74 20 168/78 H 99 12/11/19 16:05 36.9 C 74 20 146/74 H 97 12/11/19 11:46 36.7 C 68 20 119/67 96 12/11/19 10:11 64 12/11/19 07:58 36.7 C 66 20 155/76 H 98
[2019-12-11] MEDS ORDERED: amLODIPine BESYLATE 5 MG TAB PO ONE (19:05)
[2019-12-11] MEDS: MoRPHine SULFATE 2 MG/ML CARP IV PRN ×2 (19:13→22:30)
[2019-12-12] MEDS: HEPARIN SODIUM/DEXTROSE 25,000 UNITS/500 ML BAG IV SCH (01:13)
[2019-12-12] MEDS: MoRPHine SULFATE 2 MG/ML CARP IV PRN ×6 (03:30→23:09)
[2019-12-12] MEDS: GABAPENTIN 600 MG TAB PO SCH ×2 (07:17→14:17)
[2019-12-12] MEDS: SODIUM CHLORIDE 0.9% 1000ML 1,000 ML IV SCH ×2 (07:17→15:44)
[2019-12-12] MEDS: THIAMINE HCL 100 MG TAB PO SCH (07:58)
[2019-12-12] MEDS: CEROVITE ADV FORMULA TAB PO SCH (07:58)
[2019-12-12] MEDS: FOLIC ACID 1 MG in SYRINGE 9.8 ML IV SCH (07:58)
[2019-12-12] MEDS: ASPIRIN 81 MG ECTAB PO SCH (07:59)
[2019-12-12] MEDS: amLODIPine BESYLATE 5 MG TAB PO SCH (07:59)
[2019-12-12 08:27] LABS: Basophils # (auto) 0.02 K/uL (0-0.2); Basophils % (auto) 0.3 %; Eosinophils # (auto) 0.33 K/uL (0-0.5); Eosinophils % (auto) 4.7 %; Hematocrit (blood only) 40.6 % (42-52); Hemoglobin 14.7 g/dL (14.0-18.0); Lymphocytes # (auto) 2.95 K/uL (1.2-3.4); Lymphocytes % (auto) 42.1 %; Mean Corpuscular Hemoglobin 35.5 pg (25-34); Mean Corpuscular Hgb Conc 36.2 g/dL (32-36); Mean Corpuscular Volume 98.1 fL (80-100); Mean Platelet Volume 9.5 fL (7.4-10.4); Monocytes # (auto) 0.64 K/uL (0.11-0.59); Monocytes % (auto) 9.1 %; Neutrophils # (auto) 3.06 K/uL (1.4-6.5); Neutrophils % (auto) 43.8 %; Platelet Count 135 K/uL (130-400); RDW Coefficient of Variation 11.8 % (11.5-14.5); RDW Standard Deviation 42.1 fL (36.4-46.3); Red Blood Count 4.14 M/uL (4.7-6.1)
[2019-12-12 08:46] LABS: Partial Thromboplastin Ratio 1.8
[2019-12-12 08:48] LABS: Partial Thromboplastin Time 49.8 Seconds (21.0-31.0)
[2019-12-12 08:49] LABS: BUN Creatinine Ratio 12.7 (10-20); Calcium 8.7 mg/dl (8.5-10.1); Creatinine Clr Calc Pharmacy 99.6 ml/min; Est GFR (African American) 111.2; Est GFR (Non-African American) 95.9; Potassium 3.5 mmol/L (3.5-5.1)
--- NOTE | 2019-12-12 10:06 | Surgery Progress Note ---
Date of Service December 12, 2019 Assessment & Plan (1) Arterial occlusion: Pt with RLE arterial occlusion and severe claudication, now with rest pain in R foot. Foot remains viable with decent post tib circulation. Discussed with Dr Baer, still planning on RLE intervention tomorrow in OR. Pt agreeable. Admission and Anticipated Discharge Date Admission Date: December 10, 2019 Subjective 59 yo m with arterial occlusion of RLE, seen in f/u today. Pt states pain in R foot is increasing and kept him up last night. Feels better if sitting on edge of bed with foot down or standing. Denies any other new complaints. Review of Systems Review of Systems: All systems reviewed & are unremarkable except as noted in HPI & below Physical Exam Constitutional: WD/WN, vitals as above healthy appearing, cooperative and comfortable; not in distress Cardiovascular: RRR, no murmur, no edema Vessels: femoral pulses present, posterior tibial pulses present (LLE +2, RLE good doppler), dorsalis pedis pulses present (LLE +1, RLE no doppler), brachial pulses present and radial pulses present; + abnormal peripheral pulses Extremities: + abnormal capillary refill (RLE delayed at 7 seconds) and no edema Musculoskeletal: no cyanosis or clubbing, extremities motor strength 5/5 Skin: no rashes, warm and dry (dependent rubor noted to R foot) Psychiatric: A+Ox3, euthymic affect Results & Data ([place]) Vital Signs (Past 12 Hours) Vital Signs Temp Pulse Pulse Resp BP BP Pulse Ox 12/12/19 07:48 36.9 C 63 20 144/70 H 98 12/12/19 04:00 36.7 C 68 18 175/75 H 98 12/12/19 01:02 68 12/11/19 23:00 36.7 C 71 20 160/78 H 99
--- NOTE | 2019-12-12 17:56 | Hospitalist Progress Note ---
Date of Service December 12, 2019 Assessment & Plan (1) Peripheral arterial occlusive disease: Pt presented with RLE pain US shows : arterial occlusion and severe claudication. pt started on IV heparin vascular surgery consulted , plan for RLE angio with intervention on WEDNESDAY. cont on anticoagulation till then HTN ; hold Diuretics as pt will receive contrast for vascular intervention ordered for [facility] HX OF ETOH ABUSE : cont gabapentin protocol no s/s of withdrawl Hx of tobacco abuse : had lenthgy discussion regarding co relation with peripheral vascular disease and ongoing smoking pt is willing to cut down smoking counselled for medication compliance , pt has stopped taking aspirin after few months of prior rt lower ext PTCA procedure ( done 2 yrs back ) disposition : expeceted to be discharged home when medically stable Admission and Anticipated Discharge Date Admission Date: December 10, 2019 Subjective Denies of any discomfort, No complaint of shortness of breath, no cough no fever chills Physical Exam Constitutional: WD/WN, vitals as above Eyes: PERRL, conjunctivae normal, anicteric sclerae ENMT: external ear and nose normal, oropharynx normal Neck: trachea midline, no thyromegaly Respiratory: normal respiratory effort, lungs clear to auscultation Cardiovascular: RRR, no murmur, no edema Gastrointestinal (Abdomen): normal bowel sounds, soft, nontender, no hepatosplenomegaly Neurologic: PERRL, EOMI, accommodation nl, no face palsy, no dysarthria Psychiatric: A+Ox3, euthymic affect Results & Data Results & Data ([facility]) Vital Signs (Past 12 Hours) Vital Signs Temp Pulse Pulse Resp BP Pulse Ox 12/12/19 16:06 81 12/12/19 15:29 36.8 C 71 16 146/74 H 98 12/12/19 11:39 36.8 C 71 18 156/78 H 99 12/12/19 11:05 68 12/12/19 07:48 36.9 C 63 20 144/70 H 98
[2019-12-13] MEDS: SODIUM CHLORIDE 0.9% 1000ML 1,000 ML IV SCH (01:27)
[2019-12-13] MEDS: GABAPENTIN 600 MG TAB PO SCH ×2 (01:43→15:42)
[2019-12-13] MEDS: HEPARIN SODIUM/DEXTROSE 25,000 UNITS/500 ML BAG IV SCH (02:56)
[2019-12-13] MEDS ORDERED: CLINDAMYCIN 600 MG/54 ML BAG IV SCH (06:00)
[2019-12-13 07:00] LABS: Partial Thromboplastin Ratio 1.7
[2019-12-13 07:01] LABS: Partial Thromboplastin Time 47.3 Seconds (21.0-31.0)
[2019-12-13 07:13] LABS: BUN Creatinine Ratio 9.8 (10-20); Calcium 8.9 mg/dl (8.5-10.1); Creatinine Clr Calc Pharmacy 85.2 ml/min; Est GFR (Non-African American) 87.2; Potassium 3.7 mmol/L (3.5-5.1)
[2019-12-13] MEDS: ASPIRIN 81 MG ECTAB PO SCH (08:42)
[2019-12-13] MEDS: amLODIPine BESYLATE 5 MG TAB PO SCH (08:42)
[2019-12-13] MEDS: FOLIC ACID 1 MG in SYRINGE 9.8 ML IV SCH (08:42)
[2019-12-13] MEDS: THIAMINE HCL 100 MG TAB PO SCH (08:42)
[2019-12-13] MEDS: CEROVITE ADV FORMULA TAB PO SCH (08:42)
[2019-12-13] MEDS ORDERED: SODIUM CHLORIDE 0.9% 1000ML 1,000 ML IV SCH (09:00)
[2019-12-13] MEDS ORDERED: LIDOCAINE HCL 1% 20 ML VIAL ONE (12:17)
[2019-12-13] MEDS ORDERED: HEPARIN SOD (PORCINE) 1000 UNIT/ML 10 ML VIAL ONE (12:17)
[2019-12-13] MEDS ORDERED: HEPARIN SOD (PORCINE) 5,000 UNITS/ML VIAL ONE (12:20)
--- NOTE | 2019-12-13 12:40 | History & Physical Bridge Note ---
Date of Service December 13, 2019 History & Physical Bridge Note Patient for arteriography of the right lower extremity with possible intervention. I have discussed the risks options and benefits of the procedure with the patient. The patient understands the risks options and benefits and agrees to the procedure. I have examined the patient, reviewed the History & Physical and in the interval since the performance of the History & Physical I have noted the following changes of clinical significance: no changes noted
--- NOTE | 2019-12-13 12:56 | Pre Anesthesia Assessment ---
Date of Service December 13, 2019 Pre Sedation Assessment Vital Signs Temp Pulse Pulse Resp BP BP Pulse Ox 12/13/19 11:20 36.7 C 69 18 178/76 H 99 12/13/19 07:48 37.1 C 69 18 151/71 H 99 12/13/19 07:24 67 12/13/19 04:37 37.0 C 81 20 168/78 H 98 12/13/19 01:16 70 12/12/19 23:00 36.3 C L 74 20 168/83 H 97 12/12/19 19:58 37.0 C 79 20 172/83 H 98 12/12/19 16:06 81 12/12/19 15:29 36.8 C 71 16 146/74 H 98 Cardiovascular RRR, no murmur, no edema Respiratory normal respiratory effort, lungs clear to auscultation Pre-Sedation Airway Assessment Smoking Status: Current every day smoker Hx Sleep Apnea: No Short, Thick Neck: No Thyromental Distance: > or= 3.5 Finger Breadths Oral Cavity: + WNL Mallampati Class: II ASA: ASA3 NPO Status Date of Last Intake of Fluids: 12/12/19 Time of Last Intake of Fluids: 21:30 Date of Last Intake of Solid Food: 12/12/19 Time of Last Intake of Solid Foods: 21:30 Procedure Planning Contraindications for Sedation: none Current Medications Reviewed: Yes Notes The planned sedation has been discussed with the patient. Informed Consent was obtained. I have identified the patient, determined the appropriateness of sedation and have assessed the patient immediately prior to the procedure. All medicine(s) and interventions are by my order.
[2019-12-13] MEDS ORDERED: MIDAZOLAM HCL 1 MG/ML 2ML VIAL ONE ×2 (13:12→13:38)
[2019-12-13] MEDS ORDERED: fentaNYL citrate 100 MCG/2 ML VIAL ONE ×2 (13:12→13:38)
[2019-12-13] MEDS: VISIPAQUE IV PRN (14:33)
--- NOTE | 2019-12-13 14:40 | Post Anesthesia Assessment ---
Date of Service December 13, 2019 Post Sedation Assessment Vital Signs Temp Pulse Pulse Resp BP BP Pulse Ox 12/13/19 14:35 65 14 175/98 H 96 12/13/19 14:30 64 14 172/98 H 95 12/13/19 14:28 64 14 167/92 H 95 12/13/19 14:23 63 14 161/94 H 96 12/13/19 14:18 67 14 169/93 H 96 12/13/19 14:13 66 14 161/101 H 97 12/13/19 14:08 66 14 171/96 H 96 12/13/19 14:03 70 16 169/107 H 93 12/13/19 13:58 69 16 168/96 H 93 12/13/19 13:52 72 16 165/97 H 94 12/13/19 13:48 76 16 156/90 H 96 12/13/19 13:43 71 16 142/87 H 99 12/13/19 13:38 69 14 151/90 H 99 12/13/19 13:33 76 14 149/89 H 99 12/13/19 13:28 74 14 154/97 H 98 12/13/19 13:23 86 14 168/100 H 100 12/13/19 13:19 79 17 173/92 H 100 12/13/19 11:20 36.7 C 69 18 178/76 H 99 12/13/19 07:48 37.1 C 69 18 151/71 H 99 12/13/19 07:24 67 12/13/19 04:37 37.0 C 81 20 168/78 H 98 12/13/19 01:16 70 12/12/19 23:00 36.3 C L 74 20 168/83 H 97 12/12/19 19:58 37.0 C 79 20 172/83 H 98 12/12/19 16:06 81 12/12/19 15:29 36.8 C 71 16 146/74 H 98 Recovery Score Activity: Moves 4 extremities Respiration: Deep Breath/Cough Circulation: +/-20% PreAnes Value Consciousness: Fully Awake Oxygen Saturation: > 92% On Room Air Post Anesthesia Score: 10 Discharge Sedation Level of Care: Higher Level of Care Post Sedation Plan On clinical assessment, the patient appears to have tolerated the sedation without complications. Patient is recovering as anticipated. Patient will continue to be monitored by nursing and may be discharged when sedation discharge criteria are met per below protocol. Upon Completions of procedure up to 15 minutes continue every 5 minute vital signs and the P.A.R. score; then discharge to a Phase I or Fast Track to Phase II per the following guidelines: * Discharge Patient to appropriate Phase II area if PAR is 8 or greater or return to pre- procedure baseline. The post - procedure orders will be as directed. * If PAR score is less than 8 or not return to pre-procedure baseline then patient will follow Phase I monitoring till PAR is reached for Phase II. The Phase I may be done in procedure room or may call to secure a Phase I area. * If naloxone or flumazenil are used for reversal, hold in Phase I for continued monitoring from when last reversal dose was given for a minimum of 60 minutes or longer pending the nurse and/or physician discretion of patient condition before discharge to Phase II. Please call the Sedation Physician to re-evaluate and complete post-note for discharge to Phase II area. Do NOT discharge from procedure sedation or Phase 1 until post- sedation evaluation note is complete by procedure /sedation MD Sedation Discharge Instructions to be given to the patient at discharge to home.
--- NOTE | 2019-12-13 14:51 | Procedure Note ---
Angiogram Post Procedure Fluoroscopy Time (minutes): 8.8 Conscious Sedation Time (minutes): 72 Radiation (mGy): 69 Contrast: 73 Post Operative Report Pre & Post Diagnosis Operation Date: 12/13/19 13:00 Pre-Op Diagnosis: Right Superficial and Popliteal Artery Thrombosis Post-Op Diagnosis: Right Superficial and Popliteal Artery Thrombosis I identified the patient and participated in the time-out.: Yes Procedure Operation Date: 12/13/19 13:00 Actual Procedures p Right Lower Extremity Angiogram, Mechanical Thrombectomy, Percutaneous Transluminal Angioplasty of Right Superficial Femoral and Popliteal Artery; Initiating Thrombolytic Therapy; Moderate Sedation From 1323 to 1435.(Right) - Shon Baer MD Surgeon Shon Baer MD Metal Buffer none Estimated Blood Loss 5 Findings Consistent with Post-Op Diagnosis Specimens none Anesthesia Type RN Sedation Complications none Disposition Accompanied Patient To Recovery: No Disposition: Surgical ICU Indications This is a 59-year-old male who has stents in his right lower extremity. He is developed onset of severe claudication on the border of rest pain approximately 5 days prior to this. He is admitted this week for pain in the right leg and the occlusion of his stents. Arteriography and possible intervention was rec ommended. I have discussed the risks options and benefits of the procedure with the patient. The patient understands the risks options and benefits and agrees to the procedure. Description of Procedure The patient was taken to the angiogram suite and placed in the supine position. Both groins were prepped and draped in a sterile manner. A timeout was performed and the patient was identified. Local anesthetic was administered to the left groin. Percutaneous puncture was made in the left common femoral artery and a 5 Czech sheath inserted over wire. An 035 Glidewire and rim catheter was used. The right iliac was cannulated from the left side. Rim catheter was passed down to the distal external iliac artery. Arteriography was then performed. This showed occlusion of the superficial femoral artery from its origin down to the patella level. It reconstituted at that level. There was faintly seen 2 areas of filling defects in the popliteal the posterior tibial artery was seen from its origin down to the ankle. Peroneal and anterior tibial appear to be occluded. The wire was then advanced through the rim catheter. This was a stiffened Glidewire. Was passed all the way down through the lesion into the distal popliteal. 5 Czech sheath was then exchanged for an 8 Czech sheath. A quick cross catheter was then inserted. This was passed all the way into the right popliteal. Wire was then exchanged for an 014 jet wire. A 2.1 jetstream catheter was then used. Mechanical thrombectomy was performed of the superficial femoral and popliteal artery both with blades down and blades up. A small channel was then seen throughout the superficial femoral and popliteal arteries. Once this was completed the 6 mm x 120 balloon was used to dilate the popliteal and superficial femoral artery. Angiogram then that time showed residual clot in the superficial femoral artery and popliteal artery. It was decided to treat this with thrombolysis. The request was reinserted. The 014 wire was then exchanged for an 035 wire. Using an angled guide catheter this was angled into the posterior tibial artery. The angled guide catheter was removed. A 50 cm [place] catheter was then inserted. The tip of the catheter was lodged in the distal popliteal artery. Proximal portion of the catheter at the kaitlin was right at the tip of the destination sheath. The wire was then inserted to plug the distal end. Heparin was hooked up to run through the side- port and TPA will be run through the infusion catheter. The leg will be rechecked 24 hours from now. Sterile dressings were applied to the wound.The patient left the operation room in satisfactory condition and tolerated the procedure well. All needle and sponge counts were correct at the end of the procedure. I attest to the content of the Intraoperative Record and any orders documented therein. Any exceptions are noted below.
[2019-12-13] MEDS ORDERED: MoRPHine SULFATE 4 MG/ML 1 ML CARP\\VIAL IV PRN (15:19)
[2019-12-13] MEDS ORDERED: MoRPHine SULFATE 2 MG/ML CARP ONE (15:24)
--- NOTE | 2019-12-13 15:39 | Critical Care Consultation ---
Date of Consultation December 13, 2019 Assessment & Plan (1) Peripheral arterial occlusive disease: Management of superficial femoral arterial catheter per vascular surgery. He is to undergo heparin and TPA for thrombolysis. Monitor for signs of DIC as per vascular surgery's recommendations during catheter directed thrombolysis. Hypertension and pain management per vascular surgery during the acute phase of thrombolysis. I strongly encouraged smoking cessation. We will provide nicoti ne patch. Monitor for signs of alcohol withdrawal. Continue gabapentin taper. Continue folic acid and thiamine. Critical care services are available should the need arise. We will continue to follow the patient while he is in the intensive care unit. (2) Smoker: (3) Alcohol abuse: (4) Hypertension, uncontrolled: (5) Arterial occlusion: History of Present Illness Reason for Consultation: ICU monitoring Requesting Physician: Dr. Baer Attending Physician: Tito Franklin MD History of Present Illness 59-year-old male with a past medical history of hypertension and peripheral vascular disease who had previous stenting of his right lower extremity by Dr. Baer who presented to the hospital on 12/11/2019 due to severe pain in his right leg. He notes that he had pain that started last , but he wanted to watch a football game and did not come to the hospital until Wednesday. He was taken to the OR today and underwent a mechanical thrombectomy and right lower extremity angiogram with placement of catheter. The plan is for the patient to undergo a heparin and TPA thrombolysis overnight. Patient is currently complaining of pain in his lower extremity. He also has intermittent numbness in the right lower extremity. He denies any chest pain, nausea, vomiting, fevers or chills. He is a smoker and smokes roughly 1.25 packs/day. He is also an alcoholic. He is currently on thiamine folic acid. He is on gabapentin taper for concern related to potential alcohol withdrawal. He is not demonstrating alcohol withdrawal symptoms currently. Currently his blood pressure is 185/106. Saturations are in the 90s on room air. Notably, the patient is indicating that he will quit smoking after this hospitalization. Allergies Allergy/AdvReac Type Severity Reaction Status Date / Time Penicillins Allergy Severe Unknown Unverified 12/10/19 22:45 Home Medications Home Medications Medication Instructions Recorded Confirmed Type hydrochlorothiazide 25 mg PO QAM 12/10/19 12/10/19 History losartan 50 mg PO QAM 12/10/19 12/10/19 History Patient History Medical History Coagulation problem HTN (hypertension) Leg fracture, right s/p repair Surgical History S/P wrist surgery right Family History Mother Healthy adult 78 years old, alive and well Social History Smoking Status: Current every day smoker Cigarettes Per Day: 20; Second Hand Exposure: No; Hx Alcohol Use: Yes Alcohol type: beer Hx Substance Use: No Preferred Language: Albanian Communication Ability: Effective Die Grinder Required: No Beliefs That Will Affect Care: None Current Living Situation: Family Current Living Situation Comment: With 2 grandsons Other Information That Helps Us Care for You: No Feels Safe at Home: No Is there a partner from a previous relationship who is making you feel unsafe now?: No Any Concerns about Your Family Situation: No Would You Like to Speak to Someone About Your Situation: No Safety Concerns: Feels Safe At This Time Assistive Devices: Glasses Review of Systems Review of Systems: All systems reviewed & are unremarkable except as noted in HPI & below Physical Exam Constitutional: WD/WN, vitals as above Eyes: PERRL, conjunctivae normal, anicteric sclerae ENMT: external ear and nose normal, oropharynx normal Neck: normal visual inspection Respiratory: normal respiratory effort, lungs clear to auscultation Cardiovascular: Bilateral feet are cold with diminished pulses bilaterally in the pedal pulses. Gastrointestinal (Abdomen): normal bowel sounds, soft, nontender, no hepatosplenomegaly Musculoskeletal: no cyanosis or clubbing, extremities motor strength 5/5 Skin: no rashes, warm and dry Neurologic: PERRL, EOMI, accommodation nl, no face palsy, no dysarthria Psychiatric: A+Ox3, euthymic affect Results & Data Results & Data ([facility]) Vital Signs (Past 12 Hours) Vital Signs Temp Pulse Pulse Resp BP BP Pulse Ox 12/13/19 15:02 63 14 171/97 H 97 12/13/19 14:35 65 14 175/98 H 96 12/13/19 14:30 64 14 172/98 H 95 12/13/19 14:28 64 14 167/92 H 95 12/13/19 14:23 63 14 161/94 H 96 12/13/19 14:18 67 14 169/93 H 96 12/13/19 14:13 66 14 161/101 H 97 12/13/19 14:08 66 14 171/96 H 96 12/13/19 14:03 70 16 169/107 H 93 12/13/19 13:58 69 16 168/96 H 93 12/13/19 13:52 72 16 165/97 H 94 12/13/19 13:48 76 16 156/90 H 96 12/13/19 13:43 71 16 142/87 H 99 12/13/19 13:38 69 14 151/90 H 99 12/13/19 13:33 76 14 149/89 H 99 12/13/19 13:28 74 14 154/97 H 98 12/13/19 13:23 86 14 168/100 H 100 12/13/19 13:19 79 17 173/92 H 100 12/13/19 11:20 98.1 F 69 18 178/76 H 99 12/13/19 07:48 98.8 F 69 18 151/71 H 99 12/13/19 07:24 67 12/13/19 04:37 98.6 F 81 20 168/78 H 98 I reviewed vital signs, labs and imaging [place] [address] Inpt Consult Level 4 Patient Type New History Comprehensive Exam Comprehensive Medical Decision Making Straight Forward Diagnoses Peripheral arterial occlusive disease I77.9 Smoker F17.200 Alcohol abuse F10.10 Hypertension, uncontrolled I10 Arterial occlusion I70.90
--- NOTE | 2019-12-13 15:51 | Hospitalist Progress Note ---
Date of Service December 13, 2019 Assessment & Plan (1) Peripheral arterial occlusive disease: Pt presented with RLE pain US shows : arterial occlusion and severe claudication. pt started on IV heparin vascular surgery consulted , plan for RLE angio with intervention later today (12/12) cont on anticoagulation till then HTN hold Diuretics as pt will receive contrast for vascular intervention ordered for Norvasc HX OF ETOH ABUSE : cont gabapentin protocol no s/s of withdrawal Hx of tobacco abuse : had lengthy discussion regarding correlation with peripheral vascular disease and ongoing smoking pt is willing to quit smoking after hospitalization counselled for medication compliance , pt has stopped taking aspirin after few months of prior rt lower ext PTCA procedure ( done 2 yrs back ) disposition : expected to be discharged home when medically stable Admission and Anticipated Discharge Date Admission Date: December 10, 2019 Subjective Patient is sitting up in bed, in no acute distress. Denies any fevers, chills, chest pain, shortness of breath, abdominal pain, nausea or vomiting. Currently denies pain in his right lower extremity. He says that he gets pain with very short walk. He is also determined to quit smoking after hospitalization. Plan to undergo procedure with Dr. Baer later today. Review of Systems Review of Systems: All systems reviewed & are unremarkable except as noted in HPI & below Constitutional: no fever and no chills Respiratory: no cough and no dyspnea Cardiovascular: no chest pain and no palpitations Gastrointestinal: no abdominal pain, no nausea and no vomiting Physical Exam Physical Exam: Constitutional: Elderly male, sitting up in bed, in no acute distress, WD/WN, vitals as above Eyes: PERRL, EOMI, conjunctivae normal, anicteric sclerae ENMT: external ear and nose normal, oropharynx normal Neck: trachea midline, no thyromegaly Respiratory: normal respiratory effort, lungs clear to auscultation Cardiovascular: RRR, no murmur, no edema Extremities: Right foot dark red color, soft pulses noted, cool to touch Gastrointestinal (Abdomen): normal bowel sounds, soft, nontender, nondistended Neurologic: PERRL, EOMI, accommodation nl, no face palsy, no dysarthria, moves extremities spontaneously Psychiatric: A+Ox3, euthymic affect Results & Data Results & Data ([facility]) Vital Signs (Past 12 Hours) Vital Signs Temp Pulse Pulse Resp BP BP Pulse Ox 12/13/19 15:02 63 14 171/97 H 97 12/13/19 14:35 65 14 175/98 H 96 12/13/19 14:30 64 14 172/98 H 95 12/13/19 14:28 64 14 167/92 H 95 12/13/19 14:23 63 14 161/94 H 96 12/13/19 14:18 67 14 169/93 H 96 12/13/19 14:13 66 14 161/101 H 97 12/13/19 14:08 66 14 171/96 H 96 12/13/19 14:03 70 16 169/107 H 93 12/13/19 13:58 69 16 168/96 H 93 12/13/19 13:52 72 16 165/97 H 94 12/13/19 13:48 76 16 156/90 H 96 12/13/19 13:43 71 16 142/87 H 99 12/13/19 13:38 69 14 151/90 H 99 12/13/19 13:33 76 14 149/89 H 99 12/13/19 13:28 74 14 154/97 H 98 12/13/19 13:23 86 14 168/100 H 100 12/13/19 13:19 79 17 173/92 H 100 12/13/19 11:20 36.7 C 69 18 178/76 H 99 12/13/19 07:48 37.1 C 69 18 151/71 H 99 12/13/19 07:24 67 12/13/19 04:37 37.0 C 81 20 168/78 H 98 Laboratory Results 12/13/19 12/13/19 12/13/19 Range/Units 15:48 06:18 06:18 APTT 47.3 H* (21.0-31.0) Seconds PTT Ratio 1.7 Fibrinogen 283 (184-400) mg/dl Sodium 138 (136-145) mmol/L Potassium 3.7 (3.5-5.1) mmol/L Chloride 108 H (98-107) mmol/L Carbon Dioxide 25 (21-32) mmol/L Anion Gap 5.0 (3-11) BUN 9 (7-18) mg/dl Creatinine 0.94 (0.6-1.4) mg/dl Est Cr Clr Drug Dosing 85.2 ml/min Est GFR ( Amer) 101.0 Est GFR (Non-Af Amer) 87.2 BUN/Creatinine Ratio 9.8 L (10-20) Glucose 87 (70-99) mg/dl Calcium 8.9 (8.5-10.1) mg/dl Medications Administered Current Inpatient Medications Acetaminophen (Acetaminophen 325 Mg Tab) 650 mg PO Q4H PRN PRN Reason: Pain or Fever Stop: 01/10/20 00:38 Amlodipine Besylate (Amlodipine Besylate 5 Mg Tab) 5 mg PO [facility] Stop: 01/11/20 08:59 Last Admin: 12/13/19 08:42 Dose: 5 mg Documented by: Aspirin (Aspirin 81 Mg Ectab) 81 mg PO [facility] Stop: 01/10/20 08:59 Last Admin: 12/13/19 08:42 Dose: 81 mg Documented by: Gabapentin (Gabapentin 600 Mg Tab) 600 mg PO Q24H [facility] Stop: 12/14/19 14:01 Hydrochlorothiazide (Hydrochlorothiazide 25 Mg Tab) 25 mg PO [facility] Stop: 01/10/20 08:59 Last Admin: 12/13/19 17:26 Dose: 25 mg Documented by: Lorazepam (Ativan) 1 mg in 2 mls @ 2 mls/min IV ONE PRN; Protocol PRN Reason: EtoH Withdrawal AWSS 6-10 Stop: 01/10/20 00:38 Folic Acid 1 mg/ Syringe 10 mls @ 5 mls/min IV [facility] Stop: 01/10/20 08:59 Last Admin: 12/13/19 08:42 Dose: 5 mls/min Documented by: Heparin Sodium/Dextrose (Heparin Sodium/Dextrose) 25,000 unit in 500 mls @ 12 mls/hr IV .Q24H [facility] Stop: 01/12/20 15:18 Last Admin: 12/13/19 16:10 Dose: Not Given Documented by: Alteplase, Recombinant 25 mg/ (Sodium Chloride) 250 mls @ 20 mls/hr IV .[id number] [facility] Stop: 12/14/19 03:59 Last Infusion: 12/13/19 19:16 Dose: 20 mls/hr Documented by: Alteplase, Recombinant 12.5 mg (/ Sodium Chloride) 250 mls @ 20 mls/hr IV .[id number] [facility] Stop: 12/14/19 15:59 Clindamycin Phosphate (Cleocin) 600 mg in 54 mls @ 100 mls/hr IV PREOP [facility] Stop: 12/15/19 12:59 Iodixanol (Visipaque) 73 ml IV UD PRN PRN Reason: interaction checking Stop: 12/17/19 14:31 Last Admin: 12/13/19 14:33 Dose: 73 ml Documented by: Losartan Potassium (Losartan Potassium 50 Mg Tab) 50 mg PO QAM [facility] Stop: 01/10/20 08:59 Last Admin: 12/13/19 17:26 Dose: 50 mg Documented by: Miscellaneous (Remove Nicoderm Patch) 1 ea N/A DAILY@[id number] [facility] Stop: 01/13/20 08:58 Morphine Sulfate (Morphine Sulfate 4 Mg/Ml 1 Ml Carp\Vial) 1 - 4 mg IV Q2H PRN PRN Reason: Pain Stop: 12/27/19 15:18 Last Admin: 12/13/19 19:59 Dose: 4 mg Documented by: Multivitamins/Minerals (Cerovite Adv Formula Tab) [facility] [place] Stop: 01/10/20 08:59 Last Admin: 12/13/19 08:42 Dose: 1 tab Documented by: Nicotine (Nicotine 21 Mg/24 Hr Tdsy) 21 mg TD [facility] Stop: 01/12/20 15:59 Last Admin: 12/13/19 16:32 Dose: 21 mg Documented by: Nitroglycerin (Nitroglycerin Sl 0.4 Mg/Tab Tab) 0.4 mg SL UD PRN PRN Reason: Chest Pain Stop: 01/10/20 00:38 Ondansetron HCl (Ondansetron Inj 2 Mg/Ml 2 Ml Vial) 4 mg IV Q6H PRN PRN Reason: Nausea Stop: 01/10/20 00:38 Polyethylene Glycol (Polyethylene (Miralax) 17 Gm Pack) 17 gm PO DAILY PRN PRN Reason: Constipation Stop: 01/10/20 00:38 Thiamine HCl (Thiamine Hcl 100 Mg Tab) 100 [facility] [place] Stop: 01/10/20 08:59 Last Admin: 12/13/19 08:42 Dose: 100 mg Documented by:
[2019-12-13] MEDS ORDERED: RECOMBINANT IV SCH (16:00)
[2019-12-13] MEDS ORDERED: ALTEPLASE IV SCH (16:00)
[2019-12-13] MEDS ORDERED: SODIUM CHLORIDE 0.9% IV SCH (16:00)
[2019-12-13] MEDS: HEPARIN SODIUM/DEXTROSE 25,000 UNIT/500 ML BAG IV SCH (16:10)
[2019-12-13] MEDS: NICOTINE 21 MG/24 HR TDSY TD SCH (16:32)
[2019-12-13] MEDS ORDERED: Nursing to Pharmacy Communication SCH (17:00)
[2019-12-13 17:15] LABS: Fibrinogen 283 mg/dl (184-400)
[2019-12-13] MEDS: hydroCHLOROthiazide 25 MG TAB PO SCH (17:26)
[2019-12-13] MEDS: LOSARTAN POTASSIUM 50 MG TAB PO SCH (17:26)
[2019-12-13] MEDS: MoRPHine SULFATE 4 MG/ML 1 ML CARP\\VIAL IV PRN ×4 (18:04→23:59)
[2019-12-13 21:39] LABS: Basophils # (auto) 0.01 K/uL (0-0.2); Basophils % (auto) 0.1 %; Eosinophils # (auto) 0.04 K/uL (0-0.5); Eosinophils % (auto) 0.4 %; Hematocrit (blood only) 41.9 % (42-52); Hemoglobin 15.2 g/dL (14.0-18.0); Immature Granulocytes # (auto) 0.02 K/uL (0.00-0.02); Immature Granulocytes % (auto) 0.2 %; Lymphocytes # (auto) 1.58 K/uL (1.2-3.4); Lymphocytes % (auto) 15.3 %; Mean Corpuscular Hemoglobin 35.6 pg (25-34); Mean Corpuscular Hgb Conc 36.3 g/dL (32-36); Mean Corpuscular Volume 98.1 fL (80-100); Mean Platelet Volume 9.3 fL (7.4-10.4); Monocytes # (auto) 0.74 K/uL (0.11-0.59); Monocytes % (auto) 7.2 %; Neutrophils # (auto) 7.91 K/uL (1.4-6.5); Neutrophils % (auto) 76.8 %; Platelet Count 118 K/uL (130-400); RDW Standard Deviation 42.4 fL (36.4-46.3); Red Blood Count 4.27 M/uL (4.7-6.1)
[2019-12-13 21:53] LABS: Partial Thromboplastin Ratio 1.2
[2019-12-13 22:04] LABS: Fibrinogen 315 mg/dl (184-400)
[2019-12-14] MEDS: MoRPHine SULFATE 4 MG/ML 1 ML CARP\\VIAL IV PRN ×6 (01:59→12:05)
[2019-12-14 02:40] LABS: Basophils # (auto) 0.02 K/uL (0-0.2); Basophils % (auto) 0.2 %; Eosinophils # (auto) 0.07 K/uL (0-0.5); Eosinophils % (auto) 0.8 %; Hemoglobin 14.7 g/dL (14.0-18.0); Immature Granulocytes # (auto) 0.02 K/uL (0.00-0.02); Immature Granulocytes % (auto) 0.2 %; Lymphocytes # (auto) 2.21 K/uL (1.2-3.4); Lymphocytes % (auto) 24.5 %; Mean Corpuscular Hgb Conc 36.8 g/dL (32-36); Mean Platelet Volume 8.9 fL (7.4-10.4); Neutrophils # (auto) 5.79 K/uL (1.4-6.5); Neutrophils % (auto) 64.3 %; Platelet Count 113 K/uL (130-400); RDW Coefficient of Variation 11.7 % (11.5-14.5); RDW Standard Deviation 41.9 fL (36.4-46.3); Red Blood Count 4.08 M/uL (4.7-6.1); White Blood Count 9.01 K/uL (4.8-10.8)
[2019-12-14 02:59] LABS: BUN Creatinine Ratio 9.2 (10-20); Calcium 8.3 mg/dl (8.5-10.1); Creatinine Clr Calc Pharmacy 102.7 ml/min; Est GFR (African American) 112.9; Est GFR (Non-African American) 97.4; Phosphorus 3.8 mg/dl (2.5-4.9); Potassium 3.6 mmol/L (3.5-5.1)
[2019-12-14 03:02] LABS: Fibrinogen 283 mg/dl (184-400)
[2019-12-14 03:04] LABS: Partial Thromboplastin Ratio 1.2; Partial Thromboplastin Time 33.6 Seconds (21.0-31.0)
[2019-12-14] MEDS ORDERED: SODIUM CHLORIDE 0.9% IV SCH (04:00)
[2019-12-14] MEDS ORDERED: ALTEPLASE IV SCH (04:00)
[2019-12-14] MEDS ORDERED: RECOMBINANT IV SCH (04:00)
[2019-12-14] MEDS: HEPARIN SODIUM/DEXTROSE 25,000 UNIT/500 ML BAG IV SCH (04:05)
[2019-12-14] MEDS: FOLIC ACID 1 MG in SYRINGE 9.8 ML IV SCH (08:03)
[2019-12-14] MEDS: NICOTINE 21 MG/24 HR TDSY TD SCH (08:03)
[2019-12-14] MEDS: THIAMINE HCL 100 MG TAB PO SCH (08:27)
[2019-12-14] MEDS: amLODIPine BESYLATE 5 MG TAB PO SCH (08:27)
[2019-12-14] MEDS: hydroCHLOROthiazide 25 MG TAB PO SCH ×2 (08:28→15:05)
[2019-12-14] MEDS: ASPIRIN 81 MG ECTAB PO SCH (08:28)
[2019-12-14] MEDS: LOSARTAN POTASSIUM 50 MG TAB PO SCH ×2 (08:28→15:05)
[2019-12-14] MEDS: CEROVITE ADV FORMULA TAB PO SCH (08:28)
[2019-12-14 09:20] LABS: Basophils # (auto) 0.02 K/uL (0-0.2); Basophils % (auto) 0.2 %; Eosinophils % (auto) 2.2 %; Hematocrit (blood only) 38.3 % (42-52); Hemoglobin 14.1 g/dL (14.0-18.0); Immature Granulocytes # (auto) 0.02 K/uL (0.00-0.02); Immature Granulocytes % (auto) 0.2 %; Lymphocytes # (auto) 2.28 K/uL (1.2-3.4); Lymphocytes % (auto) 25.6 %; Mean Corpuscular Hemoglobin 35.7 pg (25-34); Mean Corpuscular Hgb Conc 36.8 g/dL (32-36); Monocytes # (auto) 0.94 K/uL (0.11-0.59); Monocytes % (auto) 10.6 %; Neutrophils # (auto) 5.43 K/uL (1.4-6.5); Neutrophils % (auto) 61.2 %; Platelet Count 110 K/uL (130-400); RDW Coefficient of Variation 11.8 % (11.5-14.5); RDW Standard Deviation 42.1 fL (36.4-46.3); Red Blood Count 3.95 M/uL (4.7-6.1); White Blood Count 8.89 K/uL (4.8-10.8)
[2019-12-14 09:33] LABS: Partial Thromboplastin Ratio 1.2
[2019-12-14 09:50] LABS: Fibrinogen 283 mg/dl (184-400)
[2019-12-14] MEDS ORDERED: SODIUM CHLORIDE 0.9% 1000ML 1,000 ML IV SCH (10:00)
--- NOTE | 2019-12-14 10:50 | Surgery Progress Note ---
Date of Service December 14, 2019 Assessment & Plan (1) Peripheral arterial occlusive disease: Doing well with TPA. Now has post tib pulse present with doppler. Will do recheck at 1300 today with possible intervention. I have discussed the risks options and benefits of the procedure with the patient. The patient understands the risks options and benefits and agrees to the procedure. Admission and Anticipated Discharge Date Admission Date: December 10, 2019 Subjective Patient complaining of right calf pain. Foot with no pain Physical Exam Constitutional: WD/WN, vitals as above Cardiovascular: Vessels: posterior tibial pulses present (now with right post tib pulse to doppler) Extremities: normal capillary refill Results & Data ([facility]) Vital Signs (Past 12 Hours) Vital Signs Temp Pulse Resp BP Pulse Ox 12/14/19 09:32 79 16 147/78 H 96 12/14/19 08:31 37.2 C 66 13 143/70 H 95 12/14/19 07:31 79 25 H 148/75 H 95 12/14/19 07:20 69 12/14/19 06:00 70 15 143/73 H 96 12/14/19 05:30 73 19 96 12/14/19 05:00 67 13 140/74 95 12/14/19 04:30 70 15 95 12/14/19 04:00 37.4 C 73 17 148/74 H 95 12/14/19 03:30 70 14 96 12/14/19 03:00 73 17 127/81 95 12/14/19 02:30 70 15 95 12/14/19 02:00 76 18 152/76 H 96 12/14/19 01:30 74 17 95 12/14/19 01:00 72 13 144/74 H 95 12/14/19 00:30 76 17 94 12/14/19 00:00 36.9 C 77 20 157/80 H 96 12/13/19 23:30 79 16 96 12/13/19 23:00 74 18 156/81 H 96
[2019-12-14] MEDS ORDERED: Nursing to Pharmacy Communication SCH (11:15)
--- NOTE | 2019-12-14 11:38 | Critical Care Progress Note ---
Date of Service December 14, 2019 Assessment & Plan (1) Peripheral arterial occlusive disease: Management of superficial femoral arterial catheter per vascular surgery. He is currently undergoing catheter directed thrombolysis with TPA and half milligram per hour. He has some mild bleeding around the site. Vascular surgery is aware. Monitor for signs of DIC as per vascular surgery's recommendations during catheter directed thrombolysis. Hypertension and pain management per vascular surgery during the acute phase of thrombolysis. I strongly encouraged smoking cessation. Continue nicotine patch monitor for signs of alcohol withdrawal. Continue gabapentin taper. Continue folic acid and thiamine. He does have mild hyponatremia with a sodium of 132. I will recheck a BMP. He is normal saline fluids at 100 mL/h. Critical care services are available should the need arise. We will continue to follow the patient while he is in the intensive care unit. (2) Smoker: (3) Alcohol abuse: (4) Hypertension, uncontrolled: (5) Arterial occlusion: Admission and Anticipated Discharge Date Admission Date: December 10, 2019 Subjective Patient continues to complain of pain in his right leg particularly in his right calf. He said he did not get much sleep last night due to pain. He denies any chest pain. He currently has a sheath in place with TPA at [address] Baer had instructed the drip to decrease to half milligram per hour due to some bleeding noted at the site of the insertion. Plan is for the patient to go back to the OR and undergo an angiogram of the lower extremity to evaluate for patency after TPA administration. Review of Systems Review of Systems: All systems reviewed & are unremarkable except as noted in HPI & below Physical Exam Constitutional: WD/WN, vitals as above Eyes: PERRL, conjunctivae normal, anicteric sclerae ENMT: external ear and nose normal, oropharynx normal Neck: normal visual inspection Respiratory: normal respiratory effort, lungs clear to auscultation Cardiovascular: RRR, no murmur, no edema Bilateral feet and legs are warm compared to yesterday. Posterior tibial pulses able to be heard on the Doppler. He has tenderness in the right calf. Gastrointestinal (Abdomen): normal bowel sounds, soft, nontender, no hepatosplenomegaly Musculoskeletal: no cyanosis or clubbing, extremities motor strength 5/5 Skin: no rashes, warm and dry Neurologic: PERRL, EOMI, accommodation nl, no face palsy, no dysarthria Psychiatric: A+Ox3, euthymic affect Results & Data Results & Data ([facility]) Vital Signs (Past 12 Hours) Vital Signs Temp Pulse Resp BP Pulse Ox 12/14/19 09:32 79 16 147/78 H 96 12/14/19 08:31 99.0 F 66 13 143/70 H 95 12/14/19 07:31 79 25 H 148/75 H 95 12/14/19 07:20 69 12/14/19 06:00 70 15 143/73 H 96 12/14/19 05:30 73 19 96 12/14/19 05:00 67 13 140/74 95 12/14/19 04:30 70 15 95 12/14/19 04:00 99.3 F 73 17 148/74 H 95 12/14/19 03:30 70 14 96 12/14/19 03:00 73 17 127/81 95 12/14/19 02:30 70 15 95 12/14/19 02:00 76 18 152/76 H 96 12/14/19 01:30 74 17 95 12/14/19 01:00 72 13 144/74 H 95 12/14/19 00:30 76 17 94 12/14/19 00:00 98.4 F 77 20 157/80 H 96 Coding Level of Care Code 18768 Subseq Hosp Care Lvl 2 Diagnoses Peripheral arterial occlusive disease I77.9 Smoker F17.200 Alcohol abuse F10.10 Hypertension, uncontrolled I10 Arterial occlusion I70.90
[2019-12-14 12:35] LABS: BUN Creatinine Ratio 9.8 (10-20); Calcium 8.3 mg/dl (8.5-10.1); Creatinine Clr Calc Pharmacy 99.8 ml/min; Est GFR (African American) 110.1; Potassium 3.8 mmol/L (3.5-5.1)
--- NOTE | 2019-12-14 12:50 | Pre Anesthesia Assessment ---
Date of Service December 14, 2019 Pre Sedation Assessment Vital Signs Temp Pulse Pulse Resp BP BP BP 12/14/19 12:41 36.4 C L 79 18 150/78 H 12/14/19 09:32 79 16 147/78 H 12/14/19 08:31 37.2 C 66 13 143/70 H 12/14/19 07:31 79 25 H 148/75 H 12/14/19 07:20 69 12/14/19 06:00 70 15 143/73 H 12/14/19 05:30 73 19 12/14/19 05:00 67 13 140/74 12/14/19 04:30 70 15 12/14/19 04:00 37.4 C 73 17 148/74 H 12/14/19 03:30 70 14 12/14/19 03:00 73 17 127/81 12/14/19 02:30 70 15 12/14/19 02:00 76 18 152/76 H 12/14/19 01:30 74 17 12/14/19 01:00 72 13 144/74 H 12/14/19 00:30 76 17 12/14/19 00:00 36.9 C 77 20 157/80 H 12/13/19 23:30 79 16 12/13/19 23:00 74 18 156/81 H 12/13/19 22:30 78 19 12/13/19 22:00 75 16 159/84 H 12/13/19 21:30 90 16 12/13/19 21:00 87 13 175/94 H 12/13/19 20:30 82 14 12/13/19 20:00 36.8 C 83 21 167/91 H 12/13/19 19:30 81 16 12/13/19 19:00 79 16 177/81 H 12/13/19 18:31 78 16 12/13/19 18:30 82 20 167/102 H 12/13/19 18:16 77 21 12/13/19 18:15 77 12 179/94 H 12/13/19 18:01 76 19 12/13/19 18:00 80 14 174/110 H 12/13/19 17:30 78 19 191/95 H 12/13/19 17:01 71 13 12/13/19 17:00 74 15 183/107 H 12/13/19 16:45 74 14 187/118 H 12/13/19 16:30 76 12 194/99 H 12/13/19 16:15 71 16 197/105 H 12/13/19 16:00 71 15 198/106 H 12/13/19 15:30 85 26 H 194/117 H 12/13/19 15:19 67 12/13/19 15:15 66 17 154/106 H 12/13/19 15:02 63 14 171/97 H 12/13/19 15:00 36.7 C 66 20 185/106 H 12/13/19 14:35 65 14 175/98 H 12/13/19 14:30 64 14 172/98 H 12/13/19 14:28 64 14 167/92 H 12/13/19 14:23 63 14 161/94 H 12/13/19 14:18 67 14 169/93 H 12/13/19 14:13 66 14 161/101 H 12/13/19 14:08 66 14 171/96 H 12/13/19 14:03 70 16 169/107 H 12/13/19 13:58 69 16 168/96 H 12/13/19 13:52 72 16 165/97 H 12/13/19 13:48 76 16 156/90 H 12/13/19 13:43 71 16 142/87 H 12/13/19 13:38 69 14 151/90 H 12/13/19 13:33 76 14 149/89 H 12/13/19 13:28 74 14 154/97 H 12/13/19 13:23 86 14 168/100 H 12/13/19 13:19 79 17 173/92 H Pulse Ox 12/14/19 12:41 95 12/14/19 09:32 96 12/14/19 08:31 95 12/14/19 07:31 95 12/14/19 07:20 12/14/19 06:00 96 12/14/19 05:30 96 12/14/19 05:00 95 12/14/19 04:30 95 12/14/19 04:00 95 12/14/19 03:30 96 12/14/19 03:00 95 12/14/19 02:30 95 12/14/19 02:00 96 12/14/19 01:30 95 12/14/19 01:00 95 12/14/19 00:30 94 12/14/19 00:00 96 12/13/19 23:30 96 12/13/19 23:00 96 12/13/19 22:30 96 12/13/19 22:00 96 12/13/19 21:30 97 12/13/19 21:00 97 12/13/19 20:30 96 12/13/19 20:00 97 12/13/19 19:30 97 12/13/19 19:00 97 12/13/19 18:31 97 12/13/19 18:30 97 12/13/19 18:16 96 12/13/19 18:15 96 12/13/19 18:01 96 12/13/19 18:00 97 12/13/19 17:30 96 12/13/19 17:01 96 12/13/19 17:00 96 12/13/19 16:45 96 12/13/19 16:30 96 12/13/19 16:15 96 12/13/19 16:00 96 12/13/19 15:30 98 12/13/19 15:19 12/13/19 15:15 97 12/13/19 15:02 97 12/13/19 15:00 97 12/13/19 14:35 96 12/13/19 14:30 95 12/13/19 14:28 95 12/13/19 14:23 96 12/13/19 14:18 96 12/13/19 14:13 97 12/13/19 14:08 96 12/13/19 14:03 93 12/13/19 13:58 93 12/13/19 13:52 94 12/13/19 13:48 96 12/13/19 13:43 99 12/13/19 13:38 99 12/13/19 13:33 99 12/13/19 13:28 98 12/13/19 13:23 100 12/13/19 13:19 100 Cardiovascular RRR, no murmur, no edema Respiratory normal respiratory effort, lungs clear to auscultation Pre-Sedation Airway Assessment Smoking Status: Current every day smoker Hx Sleep Apnea: No Short, Thick Neck: No Thyromental Distance: > or= 3.5 Finger Breadths Oral Cavity: + WNL Mallampati Class: II ASA: ASA3 NPO Status Date of Last Intake of Fluids: 12/13/19 Time of Last Intake of Fluids: 21:30 Date of Last Intake of Solid Food: 12/13/19 Time of Last Intake of Solid Foods: 21:30 Procedure Planning Contraindications for Sedation: none Current Medications Reviewed: Yes Notes The planned sedation has been discussed with the patient. Informed Consent was obtained. I have identified the patient, determined the appropriateness of sedation and have assessed the patient immediately prior to the procedure. All medicine(s) and interventions are by my order.
[2019-12-14] MEDS ORDERED: CLINDAMYCIN 600 MG/54 ML BAG IV SCH (13:00)
[2019-12-14] MEDS ORDERED: MIDAZOLAM HCL 1 MG/ML 2ML VIAL ONE ×2 (13:02→13:29)
[2019-12-14] MEDS ORDERED: fentaNYL citrate 100 MCG/2 ML VIAL ONE ×2 (13:02→13:28)
[2019-12-14] MEDS ORDERED: LIDOCAINE HCL 1% 20 ML VIAL ONE (13:49)
[2019-12-14] MEDS ORDERED: GABAPENTIN 600 MG TAB PO SCH (14:00)
[2019-12-14] MEDS: VISIPAQUE IV PRN (14:04)
--- NOTE | 2019-12-14 14:08 | Procedure Note ---
Angiogram Post Procedure Fluoroscopy Time (minutes): 4.2 Conscious Sedation Time (minutes): 54 Radiation (mGy): 52 Contrast: 75 Post Operative Report Pre & Post Diagnosis Operation Date: 12/13/19 13:00 Pre-Op Diagnosis: Right Superficial and Popliteal Artery Thrombosis Post-Op Diagnosis: Right Superficial and Popliteal Artery Thrombosis Operation Date: 12/14/19 13:00 Pre-Op Diagnosis: Peripheral arterial occlusive disease Post-Op Diagnosis: Peripheral arterial occlusive disease I identified the patient and participated in the time-out.: Yes Procedure Operation Date: 12/13/19 13:00 Actual Procedures p Right Lower Extremity Angiogram, Mechanical Thrombectomy, Percutaneous Transluminal Angioplasty of Right Superficial Femoral and Popliteal Artery; Initiating Thrombolytic Therapy; Moderate Sedation From 1323 to 1435.(Right) - Shon Baer MD Operation Date: 12/14/19 13:00 Actual Procedures p Recheck of Right Lower Extremity, Completion of Thormoblytics, Percutaneous Transluminal Angioplasty and Stenting of Right Popliteal and Right Superficial Femoral Arteries, Mechanical Closure of Left Femoral Artery, Moderate Sedation [id number](Left) - Shon Baer MD Surgeon Shon Baer MD Senior Games Technician none Estimated Blood Loss 10 Findings Consistent with Post-Op Diagnosis Specimens none Anesthesia Type RN Sedation Complications none Disposition Accompanied Patient To Recovery: No Disposition: Surgical ICU Indications This is a 59-year-old gentleman who was admitted with acute ischemia right lower extremity from thrombosing his previously placed superficial femoral artery stents. He underwent mechanical thrombectomy yesterday with partial clearance of the clot. He underwent TPA infusion overnight. He is brought back to the angio suite for recheck of the thrombolytics as well as possible intervention. I have discussed the risks options and benefits of the procedure with the patient. The patient understands the risks options and benefits and agrees to the procedure. Description of Procedure The patient was taken to the angiogram suite placed in supine position. The dressings were removed from the left groin puncture site sterilely. The catheters were prepped and the site draped in a sterile manner. The patient was identified and a timeout was performed. The wire was removed from the infusion catheter. Hand-injection was then performed which showed near clearance of the clot within the superficial femoral artery and proximal popliteal. From the knee downward there was good flow through the posterior tibial without any filling defects. The appearance appeared to be hyperplasia and atherosclerotic rather than residual clot. We then decided to restent the artery in the right leg. There was irregularity seen down in the popliteal to the level of the top of the patella. We then placed a 6 x 100 stent at that level and brought it up proximally. It did not open completely due to outside compression. We therefore ballooned it with a 6 x 100 balloon. The stent looks much better at that time. We then stented the rest of the superficial femoral artery with a 7 x 100 followed by a 7 x 150 followed by a 7 x 50 and last an 8 x 50 which brought us up to the proximal superficial femoral artery. We then dilated the stents with a 7 x 100 balloon. Completion arteriogram was then performed which showed a widely patent superficial femoral popliteal artery. There is a widely patent large posterior tibial which went across the ankle joint to the foot. This filled the pedal vessels. The anterior tibial artery was patent however small. It did not occlude at the ankle joint and gave collaterals to the foot. The destination sheath was then pulled to the left side. Local anesthetic was administered to the puncture site. The hand injection was then performed showing the puncture to be in the common femoral artery. The puncture site was then closed with a Star closure device. Sterile dressings were then applied after adequate stasis was noted.The patient left the operation room in satisfactory condition and tolerated the procedure well. All needle and sponge counts were correct at the end of the procedure. I attest to the content of the Intraoperative Record and any orders documented therein. Any exceptions are noted below.
--- NOTE | 2019-12-14 14:10 | Hospitalist Progress Note ---
Date of Service December 14, 2019 Assessment & Plan (1) Peripheral arterial occlusive disease: Pt presented with RLE pain US shows : arterial occlusion and severe claudication. pt started on IV heparin vascular surgery consulted , pt underwent RLE angio with intervention on 12/12 Patient underwent catheter directed thrombolysis with TPA He was then taken to the OR again with vascular surgery today, on December 13, and 5 stents were placed in right superficial femoral artery Patient tolerated procedure well, currently has no complaints, has some right calf tenderness HTN hold Diuretics as pt to receive contrast for vascular intervention ordered for Norvasc HX OF ETOH ABUSE : cont gabapentin protocol no s/s of withdrawal Hx of tobacco abuse : had lengthy discussion regarding correlation with peripheral vascular disease and ongoing smoking pt is willing to quit smoking after hospitalization counselled for medication compliance , pt has stopped taking aspirin after few months of prior rt lower ext PTCA procedure ( done 2 yrs back ) disposition : expected to be discharged home when medically stable Admission and Anticipated Discharge Date Admission Date: December 10, 2019 Subjective Pt is currently lying in bed, in no acute distress. Says his right foot feels much better, does not have any throbbing, denies any pain in his right foot, reports right calf pain. Denies any fevers, chills, chest pain, shortness of breath, abdominal pain, nausea or vomiting. Determined to quit smoking. Currently status post procedure with Dr. Baer, vascular surgery, placing 5 stents in his right superficial femoral artery. Review of Systems Review of Systems: All systems reviewed & are unremarkable except as noted in HPI & below Constitutional: no fever and no chills Respiratory: no cough and no dyspnea Cardiovascular: no chest pain and no palpitations Gastrointestinal: no abdominal pain, no nausea and no vomiting Physical Exam Physical Exam: Constitutional: Elderly male, sitting up in bed, in no acute distress, WD/WN, vitals as above Eyes: PERRL, EOMI, conjunctivae normal, anicteric sclerae ENMT: external ear and nose normal, oropharynx normal Neck: trachea midline, no thyromegaly Respiratory: normal respiratory effort, lungs clear to auscultation Cardiovascular: RRR, no murmur, no edema Extremities: Right calf tender to palpation, right foot warm, soft pulses Gastrointestinal (Abdomen): normal bowel sounds, soft, nontender, nondistended Neurologic: PERRL, EOMI, accommodation nl, no face palsy, no dysarthria, moves extremities spontaneously Psychiatric: A+Ox3, euthymic affect Results & Data Results & Data ([facility]) Vital Signs (Past 12 Hours) Vital Signs Temp Pulse Pulse Resp BP BP BP 12/14/19 14:05 83 15 142/80 H 12/14/19 14:01 82 15 133/80 12/14/19 13:56 93 H 16 141/96 H 12/14/19 13:51 89 16 148/90 H 12/14/19 13:46 79 16 167/86 H 12/14/19 13:41 81 16 137/76 12/14/19 13:36 77 16 144/82 H 12/14/19 13:31 83 12 170/96 H 12/14/19 13:26 85 12 164/87 H 12/14/19 13:21 84 12 169/89 H 12/14/19 13:16 82 14 164/87 H 12/14/19 13:07 79 14 164/86 H 12/14/19 12:41 36.4 C L 79 18 150/78 H 12/14/19 09:32 79 16 147/78 H 12/14/19 08:31 37.2 C 66 13 143/70 H 12/14/19 07:31 79 25 H 148/75 H 12/14/19 07:20 69 12/14/19 06:00 70 15 143/73 H 12/14/19 05:30 73 19 12/14/19 05:00 67 13 140/74 12/14/19 04:30 70 15 12/14/19 04:00 37.4 C 73 17 148/74 H 12/14/19 03:30 70 14 12/14/19 03:00 73 17 127/81 12/14/19 02:30 70 15 Pulse Ox 12/14/19 14:05 95 12/14/19 14:01 96 12/14/19 13:56 95 12/14/19 13:51 97 12/14/19 13:46 96 12/14/19 13:41 97 12/14/19 13:36 96 12/14/19 13:31 97 12/14/19 13:26 98 12/14/19 13:21 99 12/14/19 13:16 99 12/14/19 13:07 99 12/14/19 12:41 95 12/14/19 09:32 96 12/14/19 08:31 95 12/14/19 07:31 95 12/14/19 07:20 12/14/19 06:00 96 12/14/19 05:30 96 12/14/19 05:00 95 12/14/19 04:30 95 12/14/19 04:00 95 12/14/19 03:30 96 12/14/19 03:00 95 12/14/19 02:30 95 Laboratory Results 12/14/19 12/14/19 12/14/19 Range/Units 09:07 09:06 09:06 WBC (4.8-10.8) K/uL RBC (4.7-6.1) M/uL Hgb (14.0-18.0) g/dL Hct (42-52) % MCV (80-100) fL MCH (25-34) pg MCHC (32-36) g/dL RDW Std Deviation (36.4-46.3) fL RDW Coeff of Caesar (11.5-14.5) % Plt Count (130-400) K/uL MPV (7.4-10.4) fL Immature Gran % (Auto) % Neut % (Auto) % Lymph % (Auto) % [place] % (Auto) % Eos % (Auto) % Baso % (Auto) % Neut # (Auto) (1.4-6.5) K/uL Lymph # (Auto) (1.2-3.4) K/uL [place] # (Auto) (0.11-0.59) K/uL Eos # (Auto) (0-0.5) K/uL Baso # (Auto) (0-0.2) K/uL Immature Gran # (Auto) (0.00-0.02) K/uL APTT 34.0 H (21.0-31.0) Seconds PTT Ratio 1.2 Fibrinogen 283 (184-400) mg/dl Sodium 133 L (136-145) mmol/L Potassium 3.8 (3.5-5.1) mmol/L Chloride 102 (98-107) mmol/L Carbon Dioxide 26 (21-32) mmol/L Anion Gap 5.0 (3-11) BUN 8 (7-18) mg/dl Creatinine 0.83 (0.6-1.4) mg/dl Est Cr Clr Drug Dosing 99.8 ml/min Est GFR ( Amer) 110.1 Est GFR (Non-Af Amer) 95.0 BUN/Creatinine Ratio 9.8 L (10-20) Glucose 95 (70-99) mg/dl Calcium 8.3 L (8.5-10.1) mg/dl Phosphorus (2.5-4.9) mg/dl Magnesium (1.8-2.4) mg/dl Nasal Screen MRSA (PCR) (Negative) 12/14/19 12/14/19 12/14/19 Range/Units 09:06 02:30 02:30 WBC 8.89 (4.8-10.8) K/uL RBC 3.95 L (4.7-6.1) M/uL Hgb 14.1 (14.0-18.0) g/dL Hct 38.3 L (42-52) % MCV 97.0 (80-100) fL MCH 35.7 H (25-34) pg MCHC 36.8 H (32-36) g/dL RDW Std Deviation 42.1 (36.4-46.3) fL RDW Coeff of Caesar 11.8 (11.5-14.5) % Plt Count 110 L (130-400) K/uL MPV 9.0 (7.4-10.4) fL Immature Gran % (Auto) 0.2 % Neut % (Auto) 61.2 % Lymph % (Auto) 25.6 % [place] % (Auto) 10.6 % Eos % (Auto) 2.2 % Baso % (Auto) 0.2 % Neut # (Auto) 5.43 (1.4-6.5) K/uL Lymph # (Auto) 2.28 (1.2-3.4) K/uL [place] # (Auto) 0.94 H (0.11-0.59) K/uL Eos # (Auto) 0.20 (0-0.5) K/uL Baso # (Auto) 0.02 (0-0.2) K/uL Immature Gran # (Auto) 0.02 (0.00-0.02) K/uL APTT 33.6 H (21.0-31.0) Seconds PTT Ratio 1.2 Fibrinogen 283 (184-400) mg/dl Sodium (136-145) mmol/L Potassium (3.5-5.1) mmol/L Chloride (98-107) mmol/L Carbon Dioxide (21-32) mmol/L Anion Gap (3-11) BUN (7-18) mg/dl Creatinine (0.6-1.4) mg/dl Est Cr Clr Drug Dosing ml/min Est GFR ( Amer) Est GFR (Non-Af Amer) BUN/Creatinine Ratio (-20) Glucose (70-99) mg/dl Calcium (8.5-10.1) mg/dl Phosphorus (2.5-4.9) mg/dl Magnesium (1.8-2.4) mg/dl Nasal Screen MRSA (PCR) (Negative) 12/14/19 12/14/19 12/13/19 Range/Units 02:30 02:30 21:24 WBC 9.01 (4.8-10.8) K/uL RBC 4.08 L (4.7-6.1) M/uL Hgb 14.7 (14.0-18.0) g/dL Hct 40.0 L (42-52) % MCV 98.0 (80-100) fL MCH 36.0 H (25-34) pg MCHC 36.8 H (32-36) g/dL RDW Std Deviation 41.9 (36.4-46.3) fL RDW Coeff of Caesar 11.7 (11.5-14.5) % Plt Count 113 L (130-400) K/uL MPV 8.9 (7.4-10.4) fL Immature Gran % (Auto) 0.2 % Neut % (Auto) 64.3 % Lymph % (Auto) 24.5 % [place] % (Auto) 10.0 % Eos % (Auto) 0.8 % Baso % (Auto) 0.2 % Neut # (Auto) 5.79 (1.4-6.5) K/uL Lymph # (Auto) 2.21 (1.2-3.4) K/uL [place] # (Auto) 0.90 H (0.11-0.59) K/uL Eos # (Auto) 0.07 (0-0.5) K/uL Baso # (Auto) 0.02 (0-0.2) K/uL Immature Gran # (Auto) 0.02 (0.00-0.02) K/uL APTT (21.0-31.0) Seconds PTT Ratio Fibrinogen 315 (184-400) mg/dl Sodium 132 L (136-145) mmol/L Potassium 3.6 (3.5-5.1) mmol/L Chloride 101 (98-107) mmol/L Carbon Dioxide 25 (21-32) mmol/L Anion Gap 6.0 (3-11) BUN 7 (7-18) mg/dl Creatinine 0.78 (0.6-1.4) mg/dl Est Cr Clr Drug Dosing 102.7 ml/min Est GFR ( Amer) 112.9 Est GFR (Non-Af Amer) 97.4 BUN/Creatinine Ratio 9.2 L (10-20) Glucose 106 H (70-99) mg/dl Calcium 8.3 L (8.5-10.1) mg/dl Phosphorus 3.8 (2.5-4.9) mg/dl Magnesium 2.0 (1.8-2.4) mg/dl Nasal Screen MRSA (PCR) (Negative) 12/13/19 12/13/19 12/13/19 Range/Units 21:24 21:24 15:48 WBC 10.30 (4.8-10.8) K/uL RBC 4.27 L (4.7-6.1) M/uL Hgb 15.2 (14.0-18.0) g/dL Hct 41.9 L (42-52) % MCV 98.1 (80-100) fL MCH 35.6 H (25-34) pg MCHC 36.3 H (32-36) g/dL RDW Std Deviation 42.4 (36.4-46.3) fL RDW Coeff of Caesar 12.0 (11.5-14.5) % Plt Count 118 L (130-400) K/uL MPV 9.3 (7.4-10.4) fL Immature Gran % (Auto) 0.2 % Neut % (Auto) 76.8 % Lymph % (Auto) 15.3 % [place] % (Auto) 7.2 % Eos % (Auto) 0.4 % Baso % (Auto) 0.1 % Neut # (Auto) 7.91 H (1.4-6.5) K/uL Lymph # (Auto) 1.58 (1.2-3.4) K/uL [place] # (Auto) 0.74 H (0.11-0.59) K/uL Eos # (Auto) 0.04 (0-0.5) K/uL Baso # (Auto) 0.01 (0-0.2) K/uL Immature Gran # (Auto) 0.02 (0.00-0.02) K/uL APTT 33.0 H (21.0-31.0) Seconds PTT Ratio 1.2 Fibrinogen 283 (184-400) mg/dl Sodium (136-145) mmol/L Potassium (3.5-5.1) mmol/L Chloride (98-107) mmol/L Carbon Dioxide (21-32) mmol/L Anion Gap (3-11) BUN (7-18) mg/dl Creatinine (0.6-1.4) mg/dl Est Cr Clr Drug Dosing ml/min Est GFR ( Amer) Est GFR (Non-Af Amer) BUN/Creatinine Ratio (10-20) Glucose (70-99) mg/dl Calcium (8.5-10.1) mg/dl Phosphorus (2.5-4.9) mg/dl Magnesium (1.8-2.4) mg/dl Nasal Screen MRSA (PCR) (Negative) 12/13/19 Range/Units 14:50 WBC (4.8-10.8) K/uL RBC (4.7-6.1) M/uL Hgb (14.0-18.0) g/dL Hct (42-52) % MCV (80-100) fL MCH (25-34) pg MCHC (32-36) g/dL RDW Std Deviation (36.4-46.3) fL RDW Coeff of Caesar (11.5-14.5) % Plt Count (130-400) K/uL MPV (7.4-10.4) fL Immature Gran % (Auto) % Neut % (Auto) % Lymph % (Auto) % [place] % (Auto) % Eos % (Auto) % Baso % (Auto) % Neut # (Auto) (1.4-6.5) K/uL Lymph # (Auto) (1.2-3.4) K/uL [place] # (Auto) (0.11-0.59) K/uL Eos # (Auto) (0-0.5) K/uL Baso # (Auto) (0-0.2) K/uL Immature Gran # (Auto) (0.00-0.02) K/uL APTT (21.0-31.0) Seconds PTT Ratio Fibrinogen (184-400) mg/dl Sodium (136-145) mmol/L Potassium (3.5-5.1) mmol/L Chloride (98-107) mmol/L Carbon Dioxide (21-32) mmol/L Anion Gap (3-11) BUN (7-18) mg/dl Creatinine (0.6-1.4) mg/dl Est Cr Clr Drug Dosing ml/min Est GFR ( Amer) Est GFR (Non-Af Amer) BUN/Creatinine Ratio (10-20) Glucose (70-99) mg/dl Calcium (8.5-10.1) mg/dl Phosphorus (2.5-4.9) mg/dl Magnesium (1.8-2.4) mg/dl Nasal Screen MRSA (PCR) Negative (Negative) Medications Administered Current Inpatient Medications Acetaminophen (Acetaminophen 325 Mg Tab) 650 mg PO Q4H PRN PRN Reason: Pain or Fever Stop: 01/10/20 00:38 Amlodipine Besylate (Amlodipine Besylate 5 Mg Tab) 5 mg PO [facility] Stop: 01/11/20 08:59 Last Admin: 12/14/19 08:27 Dose: 5 mg Documented by: Aspirin (Aspirin 81 Mg Ectab) 81 mg PO [facility] Stop: 01/10/20 08:59 Last Admin: 12/14/19 08:28 Dose: 81 mg Documented by: Hydrochlorothiazide (Hydrochlorothiazide 25 Mg Tab) 25 mg PO [facility] Stop: 01/10/20 08:59 Last Admin: 12/14/19 08:28 Dose: 25 mg Documented by: Lorazepam (Ativan) 1 mg in 2 mls @ 2 mls/min IV ONE PRN; Protocol PRN Reason: EtoH Withdrawal AWSS 6-10 Stop: 01/10/20 00:38 Folic Acid 1 mg/ Syringe 10 mls @ 5 mls/min IV [facility] Stop: 01/10/20 08:59 Last Admin: 12/14/19 08:03 Dose: 5 mls/min Documented by: Heparin Sodium/Dextrose (Heparin Sodium/Dextrose) 25,000 unit in 500 mls @ 12 mls/hr IV .Q24H [facility] Stop: 01/12/20 15:18 Last Infusion: 12/14/19 06:49 Dose: 12 mls/hr Documented by: Alteplase, Recombinant 12.5 mg (/ Sodium Chloride) 250 mls @ 10 mls/hr IV .Q24H [facility] Stop: 12/14/19 20:53 Last Infusion: 12/14/19 11:09 Dose: 10 mls/hr Documented by: Clindamycin Phosphate (Cleocin) 600 mg in 54 mls @ 100 mls/hr IV PREOP [facility] Stop: 12/15/19 12:59 Last Infusion: 12/14/19 13:04 Dose: Infused Documented by: Sodium Chloride (Nss 1000ml) 1,000 mls @ 100 mls/hr IV .Q10H [facility] Stop: 01/13/20 09:59 Last Admin: 12/14/19 10:04 Dose: 100 mls/hr Documented by: Iodixanol (Visipaque) 73 ml IV UD PRN PRN Reason: interaction checking Stop: 12/17/19 14:31 Last Admin: 12/14/19 14:04 Dose: 75 ml Documented by: Losartan Potassium (Losartan Potassium 50 Mg Tab) 50 mg PO QAM [facility] Stop: 01/10/20 08:59 Last Admin: 12/14/19 08:28 Dose: 50 mg Documented by: Miscellaneous (Remove Nicoderm Patch) 1 ea N/A DAILY@[id number] [facility] Stop: 01/13/20 08:58 Last Admin: 12/14/19 08:28 Dose: 1 ea Documented by: Morphine Sulfate (Morphine Sulfate 4 Mg/Ml 1 Ml Carp\Vial) 1 - 4 mg IV Q2H PRN PRN Reason: Pain Stop: 12/27/19 15:18 Last Admin: 12/14/19 12:05 Dose: 4 mg Documented by: Multivitamins/Minerals (Cerovite Adv Formula Tab) 1 tab PO QAM [facility] Stop: 01/10/20 08:59 Last Admin: 12/14/19 08:28 Dose: 1 tab Documented by: Nicotine (Nicotine 21 Mg/24 Hr Tdsy) 21 mg TD [facility] Stop: 01/12/20 15:59 Last Admin: 12/14/19 08:03 Dose: 21 mg Documented by: Nitroglycerin (Nitroglycerin Sl 0.4 Mg/Tab Tab) 0.4 mg SL UD PRN PRN Reason: Chest Pain Stop: 01/10/20 00:38 Ondansetron HCl (Ondansetron Inj 2 Mg/Ml 2 Ml Vial) 4 mg IV Q6H PRN PRN Reason: Nausea Stop: 01/10/20 00:38 Polyethylene Glycol (Polyethylene (Miralax) 17 Gm Pack) 17 gm PO DAILY PRN PRN Reason: Constipation Stop: 01/10/20 00:38 Thiamine HCl (Thiamine Hcl 100 Mg Tab) 100 mg PO [facility] Stop: 01/10/20 08:59 Last Admin: 12/14/19 08:27 Dose: 100 mg Documented by:
--- NOTE | 2019-12-14 14:16 | Post Anesthesia Assessment ---
Date of Service December 14, 2019 Post Sedation Assessment Vital Signs Temp Pulse Pulse Resp BP BP BP 12/14/19 14:10 82 15 146/72 H 12/14/19 14:05 83 15 142/80 H 12/14/19 14:01 82 15 133/80 12/14/19 13:56 93 H 16 141/96 H 12/14/19 13:51 89 16 148/90 H 12/14/19 13:46 79 16 167/86 H 12/14/19 13:41 81 16 137/76 12/14/19 13:36 77 16 144/82 H 12/14/19 13:31 83 12 170/96 H 12/14/19 13:26 85 12 164/87 H 12/14/19 13:21 84 12 169/89 H 12/14/19 13:16 82 14 164/87 H 12/14/19 13:07 79 14 164/86 H 12/14/19 12:41 36.4 C L 79 18 150/78 H 12/14/19 09:32 79 16 147/78 H 12/14/19 08:31 37.2 C 66 13 143/70 H 12/14/19 07:31 79 25 H 148/75 H 12/14/19 07:20 69 12/14/19 06:00 70 15 143/73 H 12/14/19 05:30 73 19 12/14/19 05:00 67 13 140/74 12/14/19 04:30 70 15 12/14/19 04:00 37.4 C 73 17 148/74 H 12/14/19 03:30 70 14 12/14/19 03:00 73 17 127/81 12/14/19 02:30 70 15 12/14/19 02:00 76 18 152/76 H 12/14/19 01:30 74 17 12/14/19 01:00 72 13 144/74 H 12/14/19 00:30 76 17 12/14/19 00:00 36.9 C 77 20 157/80 H 12/13/19 23:30 79 16 12/13/19 23:00 74 18 156/81 H 12/13/19 22:30 78 19 12/13/19 22:00 75 16 159/84 H 12/13/19 21:30 90 16 12/13/19 21:00 87 13 175/94 H 12/13/19 20:30 82 14 12/13/19 20:00 36.8 C 83 21 167/91 H 12/13/19 19:30 81 16 12/13/19 19:00 79 16 177/81 H 12/13/19 18:31 78 16 12/13/19 18:30 82 20 167/102 H 12/13/19 18:16 77 21 12/13/19 18:15 77 12 179/94 H 12/13/19 18:01 76 19 12/13/19 18:00 80 14 174/110 H 12/13/19 17:30 78 19 191/95 H 12/13/19 17:01 71 13 12/13/19 17:00 74 15 183/107 H 12/13/19 16:45 74 14 187/118 H 12/13/19 16:30 76 12 194/99 H 12/13/19 16:15 71 16 197/105 H 12/13/19 16:00 71 15 198/106 H 12/13/19 15:30 85 26 H 194/117 H 12/13/19 15:19 67 12/13/19 15:15 66 17 154/106 H 12/13/19 15:02 63 14 171/97 H 12/13/19 15:00 36.7 C 66 20 185/106 H 12/13/19 14:35 65 14 175/98 H 12/13/19 14:30 64 14 172/98 H 12/13/19 14:28 64 14 167/92 H 12/13/19 14:23 63 14 161/94 H 12/13/19 14:18 67 14 169/93 H Pulse Ox 12/14/19 14:10 95 12/14/19 14:05 95 12/14/19 14:01 96 12/14/19 13:56 95 12/14/19 13:51 97 12/14/19 13:46 96 12/14/19 13:41 97 12/14/19 13:36 96 12/14/19 13:31 97 12/14/19 13:26 98 12/14/19 13:21 99 12/14/19 13:16 99 12/14/19 13:07 99 12/14/19 12:41 95 12/14/19 09:32 96 12/14/19 08:31 95 12/14/19 07:31 95 12/14/19 07:20 12/14/19 06:00 96 12/14/19 05:30 96 12/14/19 05:00 95 12/14/19 04:30 95 12/14/19 04:00 95 12/14/19 03:30 96 12/14/19 03:00 95 12/14/19 02:30 95 12/14/19 02:00 96 12/14/19 01:30 95 12/14/19 01:00 95 12/14/19 00:30 94 12/14/19 00:00 96 12/13/19 23:30 96 12/13/19 23:00 96 12/13/19 22:30 96 12/13/19 22:00 96 12/13/19 21:30 97 12/13/19 21:00 97 12/13/19 20:30 96 12/13/19 20:00 97 12/13/19 19:30 97 12/13/19 19:00 97 12/13/19 18:31 97 12/13/19 18:30 97 12/13/19 18:16 96 12/13/19 18:15 96 12/13/19 18:01 96 12/13/19 18:00 97 12/13/19 17:30 96 12/13/19 17:01 96 12/13/19 17:00 96 12/13/19 16:45 96 12/13/19 16:30 96 12/13/19 16:15 96 12/13/19 16:00 96 12/13/19 15:30 98 12/13/19 15:19 12/13/19 15:15 97 12/13/19 15:02 97 12/13/19 15:00 97 12/13/19 14:35 96 12/13/19 14:30 95 12/13/19 14:28 95 12/13/19 14:23 96 12/13/19 14:18 96 Recovery Score Activity: Moves 4 extremities Respiration: Deep Breath/Cough Circulation: +/-20% PreAnes Value Consciousness: Fully Awake Oxygen Saturation: > 92% On Room Air Post Anesthesia Score: 10 Discharge Sedation Level of Care: Fast Track Phase II Post Sedation Plan On clinical assessment, the patient appears to have tolerated the sedation without complications. Patient is recovering as anticipated. Patient will continue to be monitored by nursing and may be discharged when sedation discharge criteria are met per below protocol. Upon Completions of procedure up to 15 minutes continue every 5 minute vital signs and the P.A.R. score; then discharge to a Phase I or Fast Track to Phase II per the following guidelines: * Discharge Patient to appropriate Phase II area if PAR is 8 or greater or return to pre- procedure baseline. The post - procedure orders will be as directed. * If PAR score is less than 8 or not return to pre-procedure baseline then patient will follow Phase I monitoring till PAR is reached for Phase II. The Phase I may be done in procedure room or may call to secure a Phase I area. * If naloxone or flumazenil are used for reversal, hold in Phase I for continued monitoring from when last reversal dose was given for a minimum of 60 minutes or longer pending the nurse and/or physician discretion of patient condition before discharge to Phase II. Please call the Sedation Physician to re-evaluate and complete post-note for discharge to Phase II area. Do NOT discharge from procedure sedation or Phase 1 until post- sedation evaluation note is complete by procedure /sedation MD Sedation Discharge Instructions to be given to the patient at discharge to home.
[2019-12-14] MEDS: SODIUM CHLORIDE 0.9% 1000ML 1,000 ML IV SCH ×2 (15:04→18:12)
[2019-12-14] MEDS: oxyCODONE/ACETAMINOPHEN 5mg/325mg TAB PO PRN ×2 (18:08→22:00)
[2019-12-14] MEDS: APIXABAN 5 MG TABLET PO SCH (22:02)
[2019-12-15] MEDS: oxyCODONE/ACETAMINOPHEN 5mg/325mg TAB PO PRN ×4 (03:07→12:49)
[2019-12-15] MEDS: SODIUM CHLORIDE 0.9% 1000ML 1,000 ML IV SCH (03:34)
[2019-12-15 08:28] LABS: Hematocrit (blood only) 41.3 % (42-52); Hemoglobin 14.9 g/dL (14.0-18.0); Mean Corpuscular Hemoglobin 35.4 pg (25-34); Mean Corpuscular Hgb Conc 36.1 g/dL (32-36); Mean Corpuscular Volume 98.1 fL (80-100); Mean Platelet Volume 9.5 fL (7.4-10.4); Platelet Count 127 K/uL (130-400); RDW Coefficient of Variation 11.9 % (11.5-14.5); RDW Standard Deviation 42.3 fL (36.4-46.3); Red Blood Count 4.21 M/uL (4.7-6.1); White Blood Count 9.73 K/uL (4.8-10.8)
[2019-12-15 08:53] LABS: Calcium 8.6 mg/dl (8.5-10.1); Creatinine Clr Calc Pharmacy 89.1 ml/min; Est GFR (African American) 102.3; Est GFR (Non-African American) 88.3; Magnesium 2.1 mg/dl (1.8-2.4); Potassium 3.8 mmol/L (3.5-5.1)
[2019-12-15 08:55] LABS: Phosphorus 3.3 mg/dl (2.5-4.9)
[2019-12-15] MEDS: LOSARTAN POTASSIUM 50 MG TAB PO SCH (09:50)
[2019-12-15] MEDS: APIXABAN 5 MG TABLET PO SCH (09:51)
[2019-12-15] MEDS: ASPIRIN 81 MG ECTAB PO SCH (09:51)
[2019-12-15] MEDS: FOLIC ACID 1 MG in SYRINGE 9.8 ML IV SCH (09:52)
[2019-12-15] MEDS: hydroCHLOROthiazide 25 MG TAB PO SCH (09:52)
[2019-12-15] MEDS: CEROVITE ADV FORMULA TAB PO SCH (09:53)
[2019-12-15] MEDS: amLODIPine BESYLATE 5 MG TAB PO SCH (09:53)
[2019-12-15] MEDS: NICOTINE 21 MG/24 HR TDSY TD SCH (09:53)
[2019-12-15] MEDS: THIAMINE HCL 100 MG TAB PO SCH (09:55)
--- NOTE | 2019-12-15 11:11 | Hospitalist Progress Note ---
Date of Service December 15, 2019 Assessment & Plan (1) Peripheral arterial occlusive disease: Right superficial and popliteal artery thrombosis Pt presented with RLE pain US shows : arterial occlusion and severe claudication. pt started on IV heparin vascular surgery consulted , pt underwent RLE angio with intervention on 12/12 Patient underwent catheter directed thrombolysis with TPA He was then taken to the OR again with vascular surgery on December 13, and 5 stents were placed in right superficial femoral artery and popliteal artery Patient tolerated procedure well, currently has no complaints, has some right calf tenderness HTN held Diuretics initially as pt was to receive contrast for vascular intervention ordered for Norvas diuretics resumed HX OF ETOH ABUSE : cont gabapentin protocol no s/s of withdrawal Hx of tobacco abuse : had lengthy discussion regarding correlation with peripheral vascular disease and ongoing smoking pt is willing to quit smoking after hospitalization counselled for medication compliance Disposition : to be discharged home Follow up with vascular surgery in 2 weeks Follow up with PCP within 1 week. Admission and Anticipated Discharge Date Admission Date: December 10, 2019 Subjective Pt is laying in bed, in NAD. He is s/p RLE angio with tPA infusion and recheck with stenting of SFA and popliteal arteries. Pt reports some pain in R foot since procedure, but states this is same as pain he experienced after his last revascularization 2 yr ago. This is different pain than he had upon arrival to [facility] and is significantly less severe. Otherwise denies ant fever, chills, chest pain, shortness of breath, abd. pain, nausea or vomiting. Review of Systems Review of Systems: All systems reviewed & are unremarkable except as noted in HPI & below Constitutional: no fever and no chills Respiratory: no cough and no dyspnea Cardiovascular: no chest pain and no palpitations Gastrointestinal: no abdominal pain, no nausea and no vomiting Physical Exam Physical Exam: Constitutional: Elderly male, sitting up in bed, in no acute distress, WD/WN, vitals as above Eyes: PERRL, EOMI, conjunctivae normal, anicteric sclerae ENMT: external ear and nose normal, oropharynx normal Neck: trachea midline, no thyromegaly Respiratory: normal respiratory effort, lungs clear to auscultation Cardiovascular: RRR, no murmur, no edema Extremities: Right calf tender to palpation, right foot warm, soft pulses Gastrointestinal (Abdomen): normal bowel sounds, soft, nontender, nondistended Neurologic: PERRL, EOMI, accommodation nl, no face palsy, no dysarthria, moves extremities spontaneously Psychiatric: A+Ox3, euthymic affect Results & Data Results & Data ([facility]) Vital Signs (Past 12 Hours) Vital Signs Temp Pulse Resp BP BP Pulse Ox 12/15/19 08:07 36.8 C 71 16 147/75 H 95 12/15/19 03:22 36.8 C 82 18 155/78 H 98 12/15/19 00:00 36.7 C 77 18 145/55 H 98 Laboratory Results 12/15/19 12/15/19 12/14/19 Range/Units 07:34 07:34 09:07 WBC 9.73 (4.8-10.8) K/uL RBC 4.21 L (4.7-6.1) M/uL Hgb 14.9 (14.0-18.0) g/dL Hct 41.3 L (42-52) % MCV 98.1 (80-100) fL MCH 35.4 H (25-34) pg MCHC 36.1 H (32-36) g/dL RDW Std Deviation 42.3 (36.4-46.3) fL RDW Coeff of Caesar 11.9 (11.5-14.5) % Plt Count 127 L (130-400) K/uL MPV 9.5 (7.4-10.4) fL Sodium 131 L 133 L (136-145) mmol/L Potassium 3.8 3.8 (3.5-5.1) mmol/L Chloride 97 L 102 (98-107) mmol/L Carbon Dioxide 29 26 (21-32) mmol/L Anion Gap 5.0 5.0 (3-11) BUN 10 8 (7-18) mg/dl Creatinine 0.93 0.83 (0.6-1.4) mg/dl Est Cr Clr Drug Dosing 89.1 99.8 ml/min Est GFR ( Amer) 102.3 110.1 Est GFR (Non-Af Amer) 88.3 95.0 BUN/Creatinine Ratio 11.0 9.8 L (10-20) Glucose 96 95 (70-99) mg/dl Calcium 8.6 8.3 L (8.5-10.1) mg/dl Phosphorus 3.3 (2.5-4.9) mg/dl Magnesium 2.1 (1.8-2.4) mg/dl Medications Administered Current Inpatient Medications Acetaminophen (Acetaminophen 325 Mg Tab) 650 mg PO Q4H PRN PRN Reason: Pain or Fever Stop: 01/10/20 00:38 Amlodipine Besylate (Amlodipine Besylate 5 Mg Tab) [facility] Stop: 01/11/20 08:59 Last Admin: 12/15/19 09:53 Dose: 5 mg Documented by: Apixaban (Apixaban 5 Mg Tablet) 5 mg PO BID [facility] Stop: 01/13/20 20:59 Last Admin: 12/15/19 09:51 Dose: 5 mg Documented by: Aspirin (Aspirin 81 Mg Ectab) 81 mg PO [facility] Stop: 01/10/20 08:59 Last Admin: 12/15/19 09:51 Dose: 81 mg Documented by: Hydrochlorothiazide (Hydrochlorothiazide 25 Mg Tab) 25 mg PO [facility] Stop: 01/13/20 15:59 Last Admin: 12/15/19 09:52 Dose: 25 mg Documented by: Lorazepam (Ativan) 1 mg in 2 mls @ 2 mls/min IV ONE PRN; Protocol PRN Reason: EtoH Withdrawal AWSS 6-10 Stop: 01/10/20 00:38 Folic Acid 1 mg/ Syringe 10 mls @ 5 mls/[facility] Stop: 01/10/20 08:59 Last Admin: 12/15/19 09:52 Dose: 5 mls/min Documented by: Sodium Chloride (Nss 1000ml) 1,000 mls @ 100 mls/hr IV .Q10H [facility] Stop: 01/13/20 18:00 Last Admin: 12/15/19 03:34 Dose: 100 mls/hr Documented by: Losartan Potassium (Losartan Potassium 50 Mg Tab) 50 mg PO [facility] Stop: 01/13/20 15:59 Last Admin: 12/15/19 09:50 Dose: 50 mg Documented by: Miscellaneous (Remove Nicoderm Patch) 1 ea N/A DAILY@0859 [facility] Stop: 01/13/20 08:58 Last Admin: 12/15/19 09:55 Dose: 1 ea Documented by: Multivitamins/Minerals (Cerovite Adv Formula Tab) 1 tab PO [facility] Stop: 01/10/20 08:59 Last Admin: 12/15/19 09:53 Dose: 1 tab Documented by: Nicotine (Nicotine 21 Mg/24 Hr Tdsy) 21 mg TD [facility] Stop: 01/12/20 15:59 Last Admin: 12/15/19 09:53 Dose: 21 mg Documented by: Nitroglycerin (Nitroglycerin Sl 0.4 Mg/Tab Tab) 0.4 mg SL UD PRN PRN Reason: Chest Pain Stop: 01/10/20 00:38 Ondansetron HCl (Ondansetron Inj 2 Mg/Ml 2 Ml Vial) 4 mg IV Q6H PRN PRN Reason: Nausea Stop: 01/10/20 00:38 Oxycodone/Acetaminophen (Oxycodone/Acetaminophen 5mg/325mg Tab) 1 - 2 tab PO Q4H PRN PRN Reason: Moderate Pain Stop: 12/28/19 14:39 Last Admin: 12/15/19 08:38 Dose: 1 tab Documented by: Polyethylene Glycol (Polyethylene (Miralax) 17 Gm Pack) 17 gm PO DAILY PRN PRN Reason: Constipation Stop: 01/10/20 00:38 Thiamine HCl (Thiamine Hcl 100 Mg Tab) [facility] Stop: 01/10/20 08:59 Last Admin: 12/15/19 09:55 Dose: 100 mg Documented by:
--- NOTE | 2019-12-15 12:04 | Surgery Progress Note ---
Date of Service December 15, 2019 Assessment & Plan (1) Peripheral arterial occlusive disease: Pt doing well postop. Pain is consistent with reperfusion pain from revascularization. Pulses intact. OK for D/C home from vascular standpoint on [facility]. Will see in office in 2 weeks for reeval. Please call if needed. Admission and Anticipated Discharge Date Admission Date: December 10, 2019 Subjective 59 yo m POD #1 after RLE angio with tPA infusion and recheck with stenting of SFA and popliteal arteries, seen in f/u today. Pt admits some pain in R foot since procedure, but states this is same as pain he experienced after his last revascularization 2 yr ago. This is different pain than he had upon arrival to [facility] and is significantly less severe. Review of Systems Review of Systems: All systems reviewed & are unremarkable except as noted in HPI & below Physical Exam Constitutional: WD/WN, vitals as above healthy appearing, cooperative and comfortable; not in distress Cardiovascular: RRR, no murmur, no edema Vessels: femoral pulses present, posterior tibial pulses present (LLE +2, RLE +2), dorsalis pedis pulses present (LLE +1, RLE +2), brachial pulses present and radial pulses present; + abnormal peripheral pulses Extremities: normal capillary refill and + edema (trace RLE) Results & Data ([facility]) Vital Signs (Past 12 Hours) Vital Signs Temp Pulse Resp BP BP Pulse Ox 12/15/19 08:07 36.8 C 71 16 147/75 H 95 12/15/19 03:22 36.8 C 82 18 155/78 H 98 12/15/19 00:00 36.7 C 77 18 145/55 H 98
--- NOTE | 2019-12-15 18:28 | Discharge Summary ---
Date of Service December 15, 2019 Admission HPI Per Admitting Provider This is a 59-year-old male with past medical history significant for hypertension, ongoing tobacco abuse, history of peripheral vascular disease, status post occlusion of right femoral artery in 2018, status post balloon angioplasty and stenting of occluded superficial femoral artery, comes because of ongoing pain in the right lower extremity. The patient states since last whenever he was walking, he is having pain in the right lower extremity below knee, he could not walk more than 5 steps, he has to take rest because of pain, which prompted him to come to the ER. In the ER, the ultrasound shows no DVT, but arterial doppler shows superficial femoral artery mid occluded and distal occlusion above the stent and below the stent. ER physician talked to the vascular surgery. The patient was started on IV heparin and will be evaluated by Vascular Surgery in a.m. for possible procedure. The patient is currently resting comfortably and hemodynamically stable. He says when he is resting, there is no pain. Currently, denies any other complaints. He has smoker's cough. Denies any headache, no blurred vision, no earache, no runny nose, no sore throat, no dysphagia, no nausea, no abdominal pain, no chest pain, no shortness of breath. Normal bowel and bladder movements. Denies any bloody stools. Currently, the patient says he is raising two grandkids and is taking care of himself and is not exposed to COVID virus. Admission Exam Per Admitting Provider GENERAL: The patient is of moderate build, not in acute distress. VITAL SIGNS: Temperature 37, pulse 76, respiratory rate 18, blood pressure 156/85 and oxygen 96% on room air. HEENT: Pupils equal, round, reactive to light. Oral mucosa moist. NECK: No JVD, no neck masses. CARDIOVASCULAR: S1, S2 heard, regular rate and rhythm, no murmur, no gallop. RESPIRATORY SYSTEM: Normal AP diameter. No accessory muscle use. No wheezing, no crackles. ABDOMEN: Soft, bowel sounds present, nontender. No distention. CENTRAL NERVOUS SYSTEM: Cranial nerves II-XII grossly intact, nonfocal. EXTREMITIES: Right lower extremity is somewhat cold to palpation of the feet, fright dorsipedal pulse feeble, no tenderness on palpation. No erythema or swelling seen. Principal Diagnosis Peripheral arterial occlusive disease Right superficial and popliteal artery thrombosis Discharge Exam Constitutional: Elderly male, sitting up in bed, in no acute distress, WD/WN, vitals as above Eyes: PERRL, EOMI, conjunctivae normal, anicteric sclerae ENMT: external ear and nose normal, oropharynx normal Neck: trachea midline, no thyromegaly Respiratory: normal respiratory effort, lungs clear to auscultation Cardiovascular: RRR, no murmur, no edema Extremities: Right calf tender to palpation, right foot warm, soft pulses Gastrointestinal (Abdomen): normal bowel sounds, soft, nontender, nondistended Neurologic: PERRL, EOMI, accommodation nl, no face palsy, no dysarthria, moves extremities spontaneously Psychiatric: A+Ox3, euthymic affect Discharge Data Allergies Allergy/AdvReac Type Severity Reaction Status Date / Time Penicillins Allergy Severe Unknown Unverified 12/10/19 22:45 Consultations 12/10/19 22:17 ED Decision to Admit Stat 12/11/19 00:39 Consult Case Management - Discharge Planning Routine 12/11/19 08:00 Consult Vascular Surgery Routine 12/13/19 15:19 Consult Debeaker Routine Procedures Performed Operation Date: 12/13/19 13:00 Actual Procedures p Right Lower Extremity Angiogram, Mechanical Thrombectomy, Percutaneous Transluminal Angioplasty of Right Superficial Femoral and Popliteal Artery; Initiating Thrombolytic Therapy; Moderate Sedation From 1323 to 1435.(Right) - Shon Baer MD Operation Date: 12/14/19 13:00 Actual Procedures p Recheck of Right Lower Extremity, Completion of Thormoblytics, Percutaneous Transluminal Angioplasty and Stenting of Right Popliteal and Right Superficial Femoral Arteries, Mechanical Closure of Left Femoral Artery, Moderate Sedation [id number](Left) - Shon Baer MD Ordered Studies 12/10/19 19:40 US arterial duplex LE RT Stat US venous doppler LE RT Stat 12/13/19 07:21 EV angio LE RT Routine 12/14/19 13:00 EV angio LE RT Routine Hospital Course (1) Peripheral arterial occlusive disease: Right superficial and popliteal artery thrombosis Pt presented with RLE pain US shows : arterial occlusion and severe claudication. pt started on IV heparin vascular surgery consulted , pt underwent RLE angio with intervention on 12/12 Patient underwent catheter directed thrombolysis with TPA He was then taken to the OR again with vascular surgery on December 13, and 5 stents were placed in right superficial femoral artery and popliteal artery Patient tolerated procedure well, currently has no complaints, has some right calf tenderness Pt to be discharged on Eliquis and pain meds for reperfusion pain. Pt counselled on pain medications causing drowsiness, respiratory decrease/ failure and constipation. recommended miralax daily as needed and further discussion w/ PCP and/or vascular surgery. HTN held Diuretics initially as pt was to receive contrast for vascular intervention ordered for Norvasc diuretics resumed HX OF ETOH ABUSE : cont gabapentin protocol no s/s of withdrawal Hx of tobacco abuse : had lengthy discussion regarding correlation with peripheral vascular disease and ongoing smoking pt is willing to quit smoking after hospitalization counselled for medication compliance Disposition : to be discharged home Follow up with vascular surgery in 2 weeks Follow up with PCP within 1 week. Total Time Total Time Spent Total Time Spent (In Minutes): 40 Total Time Includes: Examination of the Patient, Discharge Planning, Medication Reconciliation and Communication With Other Providers Discharge Plan Discharge Items Patient Disposition: Home - Self-Care Reason For Visit: RT LEG PAIN Discharge Diagnosis: Peripheral arterial occlusive disease Right superficial and popliteal artery thrombosis Activity: Per Instructions section Non-emergency contact: Primary Care Provider and Surgeon Call non-emergency contact if: you have any medication questions and your symptoms worsen Follow-up/Referrals: Cayla Cabello PA-C [Physician [employer] Hand[employer] Supervisor] - 12/28/19 2:15 pm (Please arrive at 2:00) Elton Calderon MD [Primary Care Provider] - (Date & Time 12/22/2019 10:00 AM Provider Elton Calderon MD [facility] ) Diet: Heart Healthy Addtl Attending Provider Instructions: Follow up with primary care doctor on December 21. The appointment was already scheduled for you. You will also need to follow-up with vascular surgeon, Dr. Baer, in 2 weeks. Start taking Eliquis, prescription was already sent to your pharmacy. For pain, you can take medication, oxycodone/acetaminophen, which was also sent to your pharmacy. This medication can make you sleepy, and constipated. Recommend to take MiraLAX/stool softener. Do not take the medication if you feel drowsy. Recommend to use nicotine patches. It is crucial that you quit smoking. Recommend to call 1 [employer] free smoking cessation line. Pending Studies at Discharge: No Stand-Alone Forms: My [facility], Opioid Pain Management, Smoking Cessation Medications and DC Order Prescriptions: New Eliquis 5 mg tablet 5 mg PO BID Qty: 60 RF: 11 nicotine [Nicoderm CQ] 21 mg/24 hr Patch 24 Hour 21 mg transdermal QAM 14 Days Qty: 14 RF: 0 amlodipine [Norvasc] 5 mg Tablet 5 mg PO QAM 30 Days Qty: 30 RF: 0 aspirin 81 mg Tablet,Delayed Release (Dr/Ec) 81 mg PO QAM 30 Days Qty: 30 RF: 0 Eliquis 5 mg Tablet 5 mg PO BID 30 Days Qty: 60 RF: 0 thiamine HCl (vitamin B1) [Vitamin B-1] 100 mg Tablet 100 mg PO QAM 30 Days Qty: 30 RF: 0 oxycodone-acetaminophen [Percocet] 5-325 mg Tablet 1 - 2 tab PO Q4H PRN (Reason: pain) Qty: 20 RF: 0 Continued losartan 25 mg tablet 50 mg PO QAM RF: 0 hydrochlorothiazide 25 mg tablet 25 mg PO QAM RF: 0 Discharge Orders: Discharge Order (Routine); Ordered 12/15/19 Ordered By: Tito Franklin Admission Data Admit Date/Time: 12/10/19 23:04 Attending Provider: Tito Franklin Admit Provider: Hank Valdez Primary Care Provider: Elton Calderon Other Providers: Catrachita Savage ; Hank Valdez ; Lino Bower ; Clifford Coronel Seth D. ; Josiah Ulloa ; Gab Biggs ; Huseyin Edwards ; Marquis Cooper ; Shon Baer Other Interventions: Discharge Summary Assessment (RN) Last Done: 12/15/19 15:32
== END 2019-12-15 16:00 | disposition home or self-care (01) | DRG 271 ==
LOC: ED 18:37 → 2S 23:04 → SUATTDRO 23:04 → 2S 12-11 00:10 → 2W 12-11 18:42 → 1E 12-13 14:46 → 3W 12-14 17:55